=== PATIENT | male | born 1975 | race Caucasian/White ===

== ENCOUNTER → 2020-07-16 12:43 | Outpatient (CLI) | payer OTHER, SELFPAY ==
[2020-07-04 16:40] VITALS: BMI 35.6
--- NOTE | 2020-07-16 12:45 | MRI_ITS ---
STUDY: MRI LEFT SHOULDER REASON FOR EXAM: Male, 45 years old. left shoulder strain -- injured 3 weeks ago, pain entire shoulder, limited rom TECHNIQUE: Standardized fat and water weighted pulse sequences were obtained in all 3 orthogonal planes. COMPARISON: Left shoulder x-ray dated June 25, 2020 FINDINGS: There is high-grade partial tearing of the supraspinatus tendon at the greater tuberosity insertion site, with preservation of the bursal surface fibers. Normal infraspinatus tendon. Normal subscapularis tendon. Normal teres minor tendon. Normal supraspinatus muscle. Normal infraspinatus muscle. Normal subscapularis muscle. Normal teres minor muscle. Normal glenohumeral articulation. Normal humeral head and visualized proximal humerus. Normal biceps labral complex. Normal intracapsular long biceps tendon. Normal labrum. Normal capsulo- ligamentous complex. Normal rotator interval. Normal acromioclavicular articulation. There is a Type II morphology (curved), with a neutral orientation. There is no subacromial-subdeltoid bursal fluid. Normal visualized coracohumeral and coracoacromial ligaments. Normal quadrilateral space. Normal axillary space. Normal deltoid muscle. Normal trapezius muscle. MRI/Upper Ext Joint Only(Routine) IMPRESSION: 1. High-grade partial tearing of the supraspinatus tendon. Electronically Signed: Lance Pineda MD at 20:08 EST , Service support ,
== END ==
PROVIDERS: Referring Provider Physician Assistant Surgical; Visit Provider Physician Assistant Surgical
DX: S46.912A Strain of unspecified muscle, fascia and tendon at shoulder and upper arm level, left arm, initial encounter (principal)
CPT/HCPCS: 73221

== ENCOUNTER 2020-08-27 08:08 | Day surgery (SDC) | payer OTHER, SELFPAY ==
[2020-07-31 09:19] VITALS: BMI 34.1
[2020-08-27] VITALS (12 sets, daily range): BP systolic 132–148; BP diastolic 65–89; PULSE 68–105; RESP 16–18; TEMP 36.3–36.9; O2SAT 91–100; BMI 35.1
[2020-08-27] MEDS: Lactated Ringers 1,000 ML 100 ML IV (08:25)
--- NOTE | 2020-08-27 09:20 | HP_ITS ---
I have re-examined the patient. There are no clinical changes since date of exam. Intake Intake Visit Reasons: sign consent Chief Complaint: Lt shoulder injury Allergies No Known Allergies Allergy (Verified 07/31/20 09:20) PFSH Surgical History (Updated 07/31/20 @ 09:21 by Ayleen Whiting) H/O tooth extraction (Acute) Family History (Updated 07/31/20 @ 09:22 by Ayleen Whiting) Grandfather Diabetes Grandmother Lung cancer Social History (Updated 08/15/20 @ 10:[address] Nena Xiao, ) household members: spouse, children housing: house current occupational status: employed Smoking Status: Never smoker alcohol intake: never what type of physical activity do you participate in: none do you feel safe at home: Yes HPI sign consent: Surgical H&P: Yes Details: Parts of this documentation were recorded by a scribe, this documentation accurately reflects the service provided and the decisions made by me, Dr. Nena Xiao, 08/14/20 [id number]. CATALINA FELTON is a 45 year old M here today for F/U on left shoulder to sign surgery consent for left shoulder scope for RTC tear. Patient continues to have shoulder pain. He has been working without use of the left arm and states he has been doing ok. Denies numbness, tingling or other associated symptoms. ROS Const Reports weakness Musc Reports system reviewed and no additional complaints, except as docu, Reports joint pain, Reports numbness, Reports stiffness, Denies tingling Neuro Yes system reviewed and no additional complaints, except as docu, Yes numbness, No tingling, Yes weakness Ortho Exam Left Shoulder Date of injury: 06/24/20 Skin/Wound: Yes CDI, No ecchymosis, No erythema, No swelling Testing: Yes Hawkin's, Yes Neer's, Yes Speed's, Yes TTP Biceps, Yes AROM-Forward Elevation 0-180 (full), Yes Fisher, Yes lift off Internal Rotation: Hip SHOULDER: 4/5 RTC, neuro intact, negative hoffmans Assessment & Plan Problems 1. Strain of left shoulder, initial encounter S46.396K 2. Unspecified rotator cuff tear or rupture of left shoulder, not specified as traumatic M75.102 Plan Patient is aware of his injury and the cause of his pain. He has been approved through [employer] for the surgery and is here to sign surgery consent. Reviewed the pre-operative plans with the patient. Risks and benefits of the procedure were fully explained, including but not limited to infection, neurovascular injury, continued pain, arthritis, stiffness, need for further surgery, re-injury, DVT, PE, general risks of anesthesia, and loss of limb or life. The patient understands all the risks and does wish to proceed with written consent for left shoulder arthroscopy RTC repair, subacromial decompression, acromioplasty and repair as indicated. We can also request an ice machine through [employer]. He can take Tylenol PM to help him sleep at night and then after surgery he will get ambien and pain medication. Follow up post op or sooner if pain, swelling, numbness or associated symptoms, or concerns develop. All questions answered. Patient in agreement of plan. Coding Level of Care Code Off vis,est,level 4 Diagnoses Strain of left shoulder, initial encounter S46.912A ??Encounter type: initial encounter Unspecified rotator cuff tear or rupture of left shoulder, not specified as traumatic M75.102 COVID (Procedure Consent) Procedure Criteria Procedure Criteria: Yes Elective The surgeon/proceduralist and patient have discussed in detail the risk of exposure to and/or potential harm posed by the COVID-19 virus with having a surgery/procedure at this time versus the risk of? delaying the surgery/procedure. It is not possible to know either the risk of delaying the surgery or procedure or chance of getting an infection with perfect accuracy, but a joint decision was made between the patient and the surgeon/proceduralist ?to proceed at this time with the scheduled surgery/procedure as indicated on the consent form.
--- NOTE | 2020-08-27 09:40 | TESH_PTH ---
PATIENT: CATALINA FELTON LOC: [facility] [place] U#:[id number] AGE/SX: 45/M ROOM: RE08/27/[address]: Dr. Nena Xiao, : 1975 BED: DIS: 08/27/2020 SPEC #: [id number] RECD: 08/27/20 13:40 STATUS: MICHAEL ROLDAN #: [id number] LYRIC: 08/27/20 09:[address]: Nena Xiao DEPT: SURGICAL PATHOLOGY RECD BY: Radha Guan ENTERED: 08/28/20 07:50 SP TYPE: TENDON OT DR: No Primary Care Phys Tissues: Tendon and tendon sheath, NOS Procedures: Surgery Specimen Level III HEADER OPERATION: Arthroscopy, shoulder, rotator cuff debridement, subacromial PRE-OP DIAGNOSIS: Strain of left shoulder, rotator cuff tear TISSUE SUBMITTED: Bicep tendon MICROSCOPIC DIAGNOSIS Bicep tendon: A piece of dense fibroconnective tissue with reactive changes, clinically rotator cuff tear. MIKEY:natali 08/29/2020 MICROSCOPIC DESCRIPTION Slides are reviewed. GROSS DESCRIPTION Received in fixative is one container labeled with the patient's name and designated bicep tendon. The specimen consists of a piece of tendinous tissue measuring 4 x 0.4 x 0.1 cm. The specimen is sectioned and submitted entirely in one cassette. / MIKEY:natali 08/28/2020 TC:5 CPT: 22481
[2020-08-27] MEDS: Cefazolin 2 GM in 0.9% Normal Saline 100 ML IV (11:16)
[2020-08-27] MEDS: Epinephrine (1 mg/ml) 1 MG/ML VIAL (12:37)
[2020-08-27] MEDS: Mupirocin Ointment 22gm Tube 1 APPLIC (12:38)
--- NOTE | 2020-08-27 12:48 | PCM.DC.ORTHO ---
Discharge Diet: No Restrictions - May get incision wet after 4 days, remove dressing apply Band-Aids at that time, call with increased pain numbness tingling or further issues arise, follow-up in 2 weeks, arm in sling may use wrist and hand as tolerated, may move shoulder pendulums postop as tolerated Discharge Activity: May Not Drive May shower in (days): 1 Ice area for (Minutes): 20 - Every hour while awake. Weight Bearing Status: Weight bearing as tolerated Keep extremity elevated above heart level: Operative Extremity Call your doctor if your incision/area has: Continuous Slow Oozing, Sudden Increased Bleeding, Increased Pain/ Swelling, Increased Redness, Foul Smelling Discharge Call your doctor if you observe: Fever of 101 or Higher, Coldness, Increased Pain, Numbness or Tingling, Change in Color, Calf discomfort Allergies/Adverse Reactions: Allergies No Known Allergies Allergy (Verified 08/27/20 08:52) Medications to take at Discharge multivitamin 1 tab PO DAILY 07/31/20 Oxycodone HCl/Acetaminophen [Percocet 5/325] 1 - 2 tablet PO Q6H PRN PRN 5 Days #28 tablet 08/27/20 Zolpidem Tartrate [Ambien (Generic)] 5 mg PO QHS PRN PRN #14 tablet 08/27/20 The following prescriptions were given: Zolpidem Tartrate [Ambien (Generic)] 5 mg PO QHS PRN PRN #14 tablet PRN Reason: Insomnia Transmission Status: Sent to [facility] Oxycodone HCl/Acetaminophen [Percocet 5/325] 1 - 2 tablet PO Q6H PRN PRN 5 Days #28 tablet PRN Reason: Pain Transmission Status: Sent to [facility] Primary Care Physician: Care Physician,No Primary [Primary Care Provider] - Test Results: Test results from this visit will be discussed in further detail at your follow-up appointment, if applicable. Please Follow Up With: Nena Xiao, DO - [phone]
--- NOTE | 2020-08-27 12:49 | PCM.OPRPT ---
Report of Operation Date of Procedure: 08/27/20 Pre-Operative Diagnosis: left shoulder rotator cuff tear, impingment syndrome Post-Operative Diagnosis: same, slap tear/biceps tendinosis Surgery/Procedure Performed:: sals, rotator cuff debridement, subacromial decompression/acromioplasty, open subpec biceps tenodesis instrument maker: Lucas Melendez Type of Anesthesia:: General/Regional Anesthesiologist: Angel Gomez Specimen's removed: biceps tendon Estimated Blood Loss (mL): min Fluids Replaced: 1100cc lr Description of Procedure: Preop note Patient is a 45-year-old male who injured himself at work. Patient anterior with anterior shoulder shoulder pain and difficulty and positive impingement syndrome and lifting head over arm overhead as well as positive speeds and positive yergasons consistent with biceps tendinosis. Patient failed conservative treatment elect proceed with left shoulder arthroscopy repair as indicated. Risk including but not the risk benefits and alternatives surgery were discussed with patient risk include but not limited to blood loss, blood clot, infection, neurovascular G, failure procedure, loss of life and loss of limb. We had discussed with the patient preoperatively as well as although he has pain is mostly biceps it appears that there is fluid around his biceps we will evaluate the intra-articular knee and proceed with any kind of repair that is indicated for his pain is problem. Patient was aware proceed with left shoulder arthroscopy repair as indicated. We discussed the current risk associated COVID-19. While it is understood that there is a community spread of COVID 19 the risk of shauna COVID-19 while at [facility] is very low, however, the risk cannot be completely mitigated because of the community spread of the disease. We discussed in detail the risk of exposure to and or potential harm posed by the COVID-19 virus with having a surgery/procedure at this time versus the risk of delaying the surgery/procedure. Is not possible to know either the risk of delaying the surgery procedure or chance of getting an infection with perfect accuracy, but a joint decision was made to proceed at this time with a schedule surgery/procedure as indicated on the consent form. Patient was notified that we will need to comply with any screening or testing [facility] wishes to perform or that surgery may be delayed for any positive results. Operative note Patient seen and examined preop holding area. Left arm was marked. Patient received a preop interscalene regional block. Patient brought to the operative operating room and placed supine on the operating table. Sign, anesthesia, antibiotics were administered. Patient was placed in beachchair positioning mcfp through beachchair positioning his blood pressure was checked and was stable throughout. All bony promises well-padded SCDs placed on his bilateral lower extremity. The left arm was then prepped and draped in usual sterile technique. We marked out our bony landmarks for portal placement. Timeout was performed. We then used a needle to create a posterior portal and we got insufflate the joint with 60 cc of normal saline had good return. Then use 11 blade to create a posterior posterior portal. Began our diagnostic arthroscopy. The glenohumeral joint was intact. Then created an anterior portal under direct visualization. His subscap was intact his rotator cuff was intact his biceps labral junction was completely torn off and when bringing the biceps into the joint there was obvious redness and streaking throughout the entire length of the of the biceps tendon. We then inserted a basket and truncated the biceps at the biceps labral junction. We then inserted a shaver to debride back any unstable labral remnants. We then gently debride the leading edge of the rotator cuff as the leading edge supraspinatus tear however did not involve the footprint. We then moved to the subacromial space. Created a lateral portal under direct visualization. Resected the hyperemic and thickened bursa especially the posterior veil. We are able then to visualize the rotator cuff from the bursal side which is also intact and stable to probing. We then coplaned gently debrided back to the lateral anterior edge of the acromion. And then irrigated the subacromial space with copious amounts of sterile saline. We then moved her open biceps subpec tenodesis. We reprepped the area. We waited the allotted time made about a 2 and half centimeter incision just distal to the pec insertion. We used a 15 blade to cut through skin dissect down with Metzenbaums to the level of the biceps tendon biceps tendon then brought out of the incision truncated to the appropriate length and the biceps tendon sent to pathology for further evaluation. We then cleared off the bone for insertion site of our pec button. We oversewed the remaining edge of the biceps tendon and then placed the ends of the suture limbs through the pec button. We then drilled unicortical he placed the pec button and then through into the humeral shaft and the brought the tendon down to bone. We then oversewed with a free needle through the with utilizing the periosteum for further fixation strength. We then irrigated the incision with copious muscle sterile saline. The incision closed with 4-0 Vicryl and a running 5-0 Monocryl. The portals were closed with interrupted nylon stitches. Sterile dressings were applied. Patient tolerated procedure well no complication transferred recovery room stable condition. Postoperative note Sent prescriptions to drug [place] We will give pictures to patient's in 2 weeks Sling at all times except while doing pendulums for shoulder and may use shoulder to range overhead however not to actively flex elbow Call with increased pain numbness tingling further issues arise This note was generated with [employer] dictation software. It may contain incorrect words, spelling, and punctuation that were not noted in checking the note before signing.
[2020-08-27] MEDS: HYDROcodone Bitartrate/Apap 5/325 Tablet PO (15:18)
== END 2020-08-27 16:21 | disposition home or self-care (01) ==
LOC: SDC 08:08 → AC 08:09
PROVIDERS: Referring Provider Orthopaedic Surgery; Visit Provider Orthopaedic Surgery
PROC: (CPT 29827; principal; 2020-08-27 09:20)
DX: S46.012A Strain of muscle(s) and tendon(s) of the rotator cuff of left shoulder, initial encounter (principal); M75.42 Impingement syndrome of left shoulder; M75.22 Bicipital tendinitis, left shoulder; Z20.822 Contact with and (suspected) exposure to COVID-19; X58.XXXA Exposure to other specified factors, initial encounter; Y93.89 Activity, other specified; Y92.89 Other specified places as the place of occurrence of the external cause; Y99.0 Civilian activity done for income or pay
CPT/HCPCS: 01630; 29826; 29827; 29828; 87426; 88304; C9803; J7120; J2405

== ENCOUNTER 2021-01-08 11:30 | Outpatient (RCR) | payer OTHER, SELFPAY ==
[2020-09-12 09:22] VITALS: BMI 34.1
--- NOTE | 2020-09-30 10:59 | HP.PTEVAL ---
Patient's Visit Information CATALINA FELTON is a 45 year old M referred to Physical Therapy by Dr. Nena Xiao, with a diagnosis of Left Biceps Tenodesis. Date of Evaluation: 09/30/20 Physical Therapist: Ketty Alcaraz DPT - Visit Plan Frequency: 3x /Week Duration: 4 Weeks Plan: 08/27/2020 Biceps Tenodesis- see cabinet for protocol. HEP Given IE: reviwed precautions, pendulums and gave table walkaways in flexion and scaption- educated to be gentle - Subjective Patient reports that he was moving milk and it snagged on the trailer June 24- called his boss finished out the workday. [facility]. Strain and had restrictions- then had an MRI- and had surgery 08/27/[address] Xiao- no RTC repair but cleaned out bursitis and performed a tenodesis. Is wearing the sling at home in the evening but he wears it when he goes out. Left hand dominate. Patient reports that its sore on the top of the shoulder Worst: 8/10 Agg: moving it around worse in the mornings. Best: 0/10 Eases: keeping it close to his body. Sleep: disturbed hard to get comfortable- sleeping in a bed- 2.5 hours at a time. He is currently off work- 90 day light duty so they will have him go back. N/T in the hand- but goes quick when he gets moving. Describes the pain in the shoulder as constant is more dull and achy when he moves it wrong the pain can be sharp. Prior to injury-fully I prior to surgery. Has kids so they keep him busy but has really slowed down during the injury. PMHx/Meds: no changes since saw . - Objective Posture: FH, RS, increased guarding of the left UE- does have on sling without pillow. Gait: decreased arm swing and trunk rotation. Palpatoin: tender along upper trap into the biciptal groove and to the AC Joint. Observation: incision healing well no s/s of infection. ROM: Wrist/hand: WNL, Elbow: PROM: 0-120 degrees, Shoulder: AROM: flexion: 50 degrees, abd: 60 degrees, PROM: significant guarding: flexion: 90 degrees, abd: 90 degrees, IR: to belly, ER: 30 degrees all with significant discomfort. Cervical spine: WNL. Strength: not tested due to restrictions. Strainer Tender: 140 on right 40 on left - Goals Goal 1:: Patient will be I with HEP and progression Goal Time Frame: 4-6 Weeks Goal 2:: Patient will maintain proper posture t/o tx session to demo increase scap s/s Goal Time Frame: 4-6 Weeks Goal 3:: Patient will demo full AROM as all through protocol Goal Time Frame: 4-6 Weeks Goal 4:: Patient will lift 50# box x10 from floor to waist Goal Time Frame: 4-6 Weeks - Rehabilitation Potential Physical Therapy Diagnosis: Patient presents s/p biceps tenodesis 08/27/2020. He has decreased ROM, scapular s/s, and muscular endurance leading to poor posture and increased pain with ADL's Rehabilitation Potential: Good - Anticipated Interventions Patient/Client Instruction: Educate patient on: Benefits of Fitness Program Therapeutic Exercise to Include: Strength training, Endurance training, Agility training, Body mechanics, Postural training, Flexibilty training, Neuromotor development, Passive ROM, Active ROM, Dynamic Lumbar Stabilization, Scapular Strength/Stabilization For the Purpose of:: To improve muscle performance and motor function Functional Training to Include: ADL Training, Functional work training Manual Therapy Techniques to Include: Mobilization, Passive ROM, Soft tissue mobilization For the Purpose of:: To increase ROM TENS: Yes Cryotherapy (ice pack, ice massage): Yes Thermo therapy (hot pack): Yes Ultrasound (thermal/non thermal): No For the Purpose of:: To decrease pain Thank you for the opportunity to evaluate your patient. For Medicare and Medicare HMO plans, please review the plan of care and approve it. It will need to be FAXED BACK to us at [phone] for Medicare purposes. For Medicare only, by signing this I certify the plan of care. Please let me know if there are questions or concerns regarding this plan of care. Physician Signature: Date:
--- NOTE | 2020-10-30 13:08 | HP.PTREVAL ---
Dr. Nena Xiao, DO, It has been my pleasure to treat CATALINA FELTON over the last 9 visits for Left Biceps Tenodesis. Please see the progress note below for an update on the physical therapy plan of care! Subjective: He reports that its moving better but he still has a lot of pain in the ER motion and radiates pain into the deltoid. He stil can't wash his back behind him due to lack of ROM. Goes back to [place] in a few weeks. He is not back to work yet but when he does he will only have 90 days for light duty. 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 Worst: 02/03 Agg: moving it- cross body, behind his back and then out to the side. Does wake him up at night. Objective/Function: Posture: FH, RS- still guards the left UE. Gait: mild decrease in left arm swing and trunk rotation. Palpatoin: tender along upper trap, medial border of the scapula and into the AC joint and deltoid. ROM: AROM: Flexion: 120 degrees Abd: 110 degrees IR: belt line, ER: 40 degrees Elbow: WFL. Strength: Isometric: Shoulder: 4/5 with pain, Elbow: 4+/5, Head Refrigerating Engineer Strength: 60lbs of forces Plan Plan: 10/30/2020 Requires new C9 to continue therapy and progress through protocol. 08/27/2020 Biceps Tenodesis- see cabinet for protocol Goals Goal 1:: Patient will be I with HEP and progression Goal Time Frame: 4-6 Weeks Goal Progress: Progressing Goal 2:: Patient will maintain proper posture t/o tx session to demo increase scap s/s Goal Time Frame: 4-6 Weeks Goal Progress: Progressing Goal 3:: Patient will demo full AROM as all through protocol Goal Time Frame: 4-6 Weeks Goal Progress: Progressing Goal 4:: Patient will lift 50# box x10 from floor to waist Goal Time Frame: 4-6 Weeks Goal Progress: Not Progressing Anticipated Interventions Patient/Client Instruction: Educate patient on: Benefits of Fitness Program Therapeutic Exercise to Include: Strength training, Endurance training, Agility training, Body mechanics, Postural training, Flexibilty training, Neuromotor development, Passive ROM, Active ROM, Dynamic Lumbar Stabilization, Scapular Strength/Stabilization For the Purpose of:: To improve muscle performance and motor function Functional Training to Include: ADL Training, Functional work training Manual Therapy Techniques to Include: Mobilization, Passive ROM, Soft tissue mobilization For the Purpose of:: To increase ROM TENS: Yes Cryotherapy (ice pack, ice massage): Yes Thermo therapy (hot pack): Yes Ultrasound (thermal/non thermal): No For the Purpose of:: To decrease pain Please do not hesitate to contact me at [phone] by phone or if you have questions or concerns regarding this new plan of care! Sincerely, LOS ShahT
--- NOTE | 2020-12-16 13:51 | HP.PTREVAL ---
Dr. Nena Xiao, DO, It has been my pleasure to treat CATALINA FELTON over the last 12 visits for Left Biceps Tenodesis. Please see the progress note below for an update on the physical therapy plan of care! Subjective: Trying to get a dynasplint. Getting therapy extended. Still has pain top of shoulder and doctor may want to do another surgery but wants ROM back first. Long run to therapy 100 mile round trip from [place]. Doing exercises at home inclduing syd and wall slides and table slides. Has not been doing any strengthening. Pain is not present at rest. L arm across body can be painful and reaching behind back is painful. Can reach up decently. Hurts and sore after I stretch. Objective/Function: L shoulder AROM flexion 125, ext rot25, ir PSIS all self limited by pain. PROM L flexion 128 firm, ext rotation 35 frim, IR 45 at 80 abd firm. Pt hesitant to push into pain and over concerned with pain in shoulder adn some popping which limit his stretches. Not really progressing toward goals but has been noncompliant with attendance. still appropriate and questionable prognosis Plan Plan: 3x/week for 3 weeks for aggressive ROM L shoulder and progression of elevated strength to tolerance, may use modalities to compliment ROM and manual mobs. Goals Goal 1:: Patient will be I with HEP and progression Goal Time Frame: 4-6 Weeks Goal Progress: Progressing Goal 2:: Patient will maintain proper posture t/o tx session to demo increase scap s/s Goal Time Frame: 4-6 Weeks Goal Progress: Progressing Goal 3:: Patient will demo full AROM as all through protocol Goal Time Frame: 4-6 Weeks Goal Progress: Progressing Goal 4:: Patient will lift 50# box x10 from floor to waist Goal Time Frame: 4-6 Weeks Goal Progress: Not Progressing Anticipated Interventions Patient/Client Instruction: Educate patient on: Benefits of Fitness Program Therapeutic Exercise to Include: Strength training, Endurance training, Agility training, Body mechanics, Postural training, Flexibilty training, Neuromotor development, Passive ROM, Active ROM, Dynamic Lumbar Stabilization, Scapular Strength/Stabilization For the Purpose of:: To improve muscle performance and motor function Functional Training to Include: ADL Training, Functional work training Manual Therapy Techniques to Include: Mobilization, Passive ROM, Soft tissue mobilization For the Purpose of:: To increase ROM TENS: Yes Cryotherapy (ice pack, ice massage): Yes Thermo therapy (hot pack): Yes Ultrasound (thermal/non thermal): No For the Purpose of:: To decrease pain Please do not hesitate to contact me at [phone] by phone or if you have questions or concerns regarding this new plan of care! Sincerely, Les Quiñones, DPT, OCS, CSCS
--- NOTE | 2021-01-08 11:51 | HP.PTREVAL_ITS ---
Dr. Nena Xiao, DO, It has been my pleasure to treat CATALINA FELTON over the last 18 visits for Left Biceps Tenodesis. Please see the progress note below for an update on the physical therapy plan of care! Subjective: Patient reports that he can go over head straight fowards- since surgery he feels like the abduction is an issue. He also has a lot of pain. Worst: 6/10 pain is located in the anterior shoulder and in the tricep area- more sharp and shooting. Eases: ice machine Best: 0/10. Goes back to MD in the next week or two. Date extension for the C9 is up today. Feels that he is making progress with more ROM with stretching. Does not have a return to work date- his company is still working with him- [employer]. Objective/Function: Posture: FH, RS- can correct but does not maintain. Gait: good arm swing and trunk rotation. Palpation: tender along upper trap and to the AC joint. ROM: Shoulder Flexion: 130 degrees Abd: 80 degrees with compensation IR: pocket, ER: 40 degree, Elbow/Wrist/Hand: WNL. Strength: Director [employer]: Left: 90 Right: 130, Wrist: 4/5, Shoulder: Isometric at 90 degrees: flexion: 4 /5, abd: 4/5, Extn: 4+/5, Abd: 4/5, IR/ER: 4-/5. In available range: 4-/5 pain. Plan Plan: 01/08/2021: Waiting on new C9. 3x/week for 3 weeks for aggressive ROM L shoulder and progression of elevated strength to tolerance, may use modalities to compliment ROM and manual mobs. Goals Goal 1:: Patient will be I with HEP and progression Goal Time Frame: 4-6 Weeks Goal Progress: Progressing Goal 2:: Patient will maintain proper posture t/o tx session to demo increase scap s/s Goal Time Frame: 4-6 Weeks Goal Progress: Progressing Goal 3:: Patient will demo full AROM as all through protocol Goal Time Frame: 4-6 Weeks Goal Progress: Progressing Goal 4:: Patient will lift 50# box x10 from floor to waist Goal Time Frame: 4-6 Weeks Goal Progress: Not Progressing Anticipated Interventions Patient/Client Instruction: Educate patient on: Benefits of Fitness Program Therapeutic Exercise to Include: Strength training, Endurance training, Agility training, Body mechanics, Postural training, Flexibilty training, Neuromotor development, Passive ROM, Active ROM, Dynamic Lumbar Stabilization, Scapular Strength/Stabilization For the Purpose of:: To improve muscle performance and motor function Functional Training to Include: ADL Training, Functional work training Manual Therapy Techniques to Include: Mobilization, Passive ROM, Soft tissue mobilization For the Purpose of:: To increase ROM TENS: Yes Cryotherapy (ice pack, ice massage): Yes Thermo therapy (hot pack): Yes Ultrasound (thermal/non thermal): No For the Purpose of:: To decrease pain Please do not hesitate to contact me at [phone] by phone or if you have questions or concerns regarding this new plan of care! Sincerely, LOS ShahT
== END 2021-01-08 19:00 | disposition home or self-care (01) ==
LOC: PT 11:30
PROVIDERS: Referring Provider Orthopaedic Surgery; Visit Provider Orthopaedic Surgery
DX: S46.122D Laceration of muscle, fascia and tendon of long head of biceps, left arm, subsequent encounter (principal); X58.XXXD Exposure to other specified factors, subsequent encounter
CPT/HCPCS: 97110; 97140; 97161; 97164; 97530

== ENCOUNTER 2021-08-27 15:27 | Outpatient (CLI) | payer OTHER, SELFPAY ==
--- NOTE | 2021-08-27 15:37 | MRI_ITS ---
EXAM: MR RIGHT UPPER EXTREMITY WITHOUT INTRAVENOUS CONTRAST, SHOULDER CLINICAL INDICATION: R shoulder strain Pain extending down arm. Pain x 3-4 weeks TECHNIQUE: Multiplanar and multisequence MR images of the right shoulder without intravenous contrast. This report was created using [employer] report generation technology. COMPARISON: None. FINDINGS: TENDONS: SUPRASPINATUS: Partial incomplete tear of the supraspinatus tendon. INFRASPINATUS: Unremarkable. Intact. SUBSCAPULARIS: Unremarkable. Intact. TERES MINOR: Unremarkable. Intact. BICEPS BRACHII, LONG HEAD: Unremarkable. The extra-articular biceps tendon is in the bicipital groove. The intra-articular biceps tendon is normal. LIGAMENTS: GLENOHUMERAL: Unremarkable. Intact. MUSCLES: Unremarkable. No rotator cuff muscle atrophy. FLUID: There is minimal fluid distention of the subacromial bursa, consistent with mild subacromial-subdeltoid bursitis. No joint effusion. CARTILAGE: Unremarkable. Articular cartilage intact. GLENOID LABRUM: Unremarkable. Intact, limited evaluation on non-arthrographic exam. BONES/JOINTS: There is degenerative arthrosis of the acromioclavicular joint without inferior osseous spur formation. No fracture. No abnormal bone marrow signal. OTHER SOFT TISSUES: Unremarkable. No rotator interval edema. MRI/Upper Ext Joint Only(Routine) IMPRESSION: 1. There is minimal fluid distention of the subacromial bursa, consistent with mild subacromial-subdeltoid bursitis. 2. Partial incomplete tear of the supraspinatus tendon. Electronically Signed: Enrique Nogueira MD at 17:39 EST ,
== END 2021-08-27 23:59 | disposition home or self-care (01) ==
LOC: MRI 15:28
PROVIDERS: Visit Provider Physician Assistant Surgical
DX: S46.911A Strain of unspecified muscle, fascia and tendon at shoulder and upper arm level, right arm, initial encounter (principal)
CPT/HCPCS: 73221

== ENCOUNTER 2021-10-05 10:06 | Outpatient (CLI) | payer OTHER, SELFPAY ==
--- NOTE | 2021-10-05 11:26 | NEURO ---
NCS and/or EMG Patient Report Ordering Doctor: Lucas Melendez DATE OF SERVICE: 10/05/21 Indication: Numbness in the first three digits of the right hand. History of recent rotator cuff injury as well as lateral elbow pain. Evaluate for entrapment neuropathy. Findings: Nerve conduction studies were performed in the right upper extremity. The right median motor study recording the abductor pollicis brevis showed a normal amplitude, prolonged distal latency and slowed conduction velocity. The right ulnar motor study recording the abductor digiti minimi showed a normal amplitude, normal distal latency and normal conduction velocity. No conduction block or focal slowing was present across the elbow. The right median sensory response recording digit two showed a borderline amplitude, prolonged latency and slowed conduction velocity. The right ulnar sensory response recording digit five showed a normal amplitude, latency and conduction velocity. The right radial sensory response recording over the extensor snuff box showed a normal amplitude, latency and conduction velocity. Right median-ulnar lumbrical / interosseous motor latencies showed a prolonged median latency compared to the ulnar. Needle EMG of the right upper extremity muscles was performed. No denervation was seen in any muscle. Motor units in the right abductor pollicis brevis were slightly large amplitude and long duration with normal recruitment. All other motor unit morphology, activation and recruitment patterns were normal. Impression: This is an abnormal study. There is electrophysiologic evidence of a mild median neuropathy across the right wrist. These findings are compatible with the clinical diagnosis of carpal tunnel syndrome. Jeremie Bui D.O. Multi Select Codes Neurology Neurology Interp Codes: 52121-63 Musc test done w/n test comp (interp) and 78473-62 Nr cndj test 7-8 studies (interp)
== END 2021-10-05 23:59 | disposition home or self-care (01) ==
LOC: PSN 10:08
PROVIDERS: Referring Provider Physician Assistant; Visit Provider Physician Assistant
DX: S46.911A Strain of unspecified muscle, fascia and tendon at shoulder and upper arm level, right arm, initial encounter (principal); R20.0 Anesthesia of skin
CPT/HCPCS: 95886; 95910

== ENCOUNTER 2021-10-13 10:40 | Outpatient (CLI) | payer OTHER, SELFPAY ==
[2021-10-13 12:20] LABS: Absolute Lymphocyte Count 1.86 X10^3/uL (0.83-4.51); Absolute Neutrophil Count 3.9 X10^3/uL (2.0-7.7); Basophil# 0.04 X10^3/uL; Basophil% 0.6 % (0-1); Eosinophil# 0.14 X10^3/uL; Eosinophils% 2.1 % (0-5); Hematocrit 47.4 % (40-54); Hemoglobin 15.6 g/dL (13.0-16.5); Lymphocyte # 1.86 X10^3/ul (0.83-4.51); Lymphocyte % 27.6 % (19-41); Mean Corp Hgb Conc 32.9 g/dL (32-36); Mean Corpuscular Hgb 30.5 pg (27.0-32.0); Mean Corpuscular Volume 92.6 fL (80-94); Mean Platelet Vol. 10.9 fl (6.2-12.0); Monocyte# 0.78 X10^3/uL; Monocyte% 11.6 % (0-10); NRBC Flagged by Analyzer 0 % (0-5); Neutrophil % 57.7 % (47-70); Platelet Count 184 K/mm3 (150-450); RBC Distribution Width CV 12.5 % (11.6-14.6); RBC Distribution Width SD 43.2 fl (35.1-43.9); Red Blood Count 5.12 M/mm3 (4.6-6.2); White Blood Count 6.8 K/mm3 (4.4-11.0)
[2021-10-13 12:33] LABS: ALB/GLOB Ratio 0.9 RATIO (0.9-2.4); AST(SGOT) 23 U/L (15-37); Alanine Aminotransfer ALT/SGPT 43 U/L (16-61); Albumin, Serum 3.5 g/dL (3.2-5.0); Alkaline Phosphatase 89 U/L (45-117); Anion Gap 5 (5-15); BUN 11 mg/dL (7-18); BUN/Creat Ratio 13.4 RATIO (10-20); Calcium,Total 8.4 mg/dL (8.5-10.1); Chloride 107 mmol/L (98-107); Cholesterol 169 mg/dL (200); Creatinine, Serum 0.82 mg/dL (0.70-1.30); EST Glomerular Filtration Rate 108 mL/min (>60); Est Glom Filt Rate - Afr Amer 130 mL/min (>60); Globulin 4.1 g/dL (2.2-4.2); Glucose 114 mg/dL (74-106); High Density Lipoprotein 52 mg/dL; Potassium 4.1 mmol/L (3.5-5.1); Protein, Total 7.6 g/dL (6.4-8.2); Sodium Level 140 mmol/L (136-145); Thyroid Stim Hormone (TSH) 2.09 uIU/mL (0.358-3.74); Triglycerides 54 mg/dL; Very Low Density Lipoprotein 11 mg/dL (5-40)
== END 2021-10-13 23:59 | disposition home or self-care (01) ==
LOC: BIMLAB 10:41
PROVIDERS: PCP Internal Medicine; Referring Provider Physician Assistant; Visit Provider Physician Assistant
DX: R63.1 Polydipsia (principal)
CPT/HCPCS: 36415; 80053; 80061; 84443; 85025

== ENCOUNTER 2021-10-20 07:00 | Outpatient (RCR) | payer OTHER, SELFPAY ==
--- NOTE | 2021-09-01 09:51 | HP.PTEVAL_ITS ---
Patient's Visit Information CATALINA FELTON is a 46 year old M referred to Physical Therapy by MIGUEL ANGEL Caicedo with a diagnosis of STRAIN OF UNSPECIFIED FASCIA AND TENDON SHOULDER, STRAIN OF HIP ADDUCTOR. Date of Evaluation: 09/01/21 Physical Therapist: Cruzito Deleon PT, Cert MDT, OCS - Visit Plan Frequency: 3x /Week Duration: 4 Weeks Plan: PT INETERVETIONS GRADED RTC/SCAPULAR STRENGTHENING ,POSTURAL EX'S ,ROM/FLEXABLITY HIP ,STRENGTHNEING HIP ,ACTIVITY MODIFICATIONS AND MODALTIES - Subjective This 46 y/o male presents to physical therapy with right shoulder pain and and right groin region. Patient slipped to side with. case of milk when lifting causing right pain and groin region. DOI 08/03/21 ,[facility] ~ 1[facility] . Initially ,restrictions at work 10 # lifting with normal hours. Pain was getting better then did MRI showed partial supraspinatus. DR provided MEDS .C/O paresthesia in hand. Aggravating factors lifting with arm OH ,reaching behind back and reaching. Alleviating factors rest. Pain affects sleeping. Pain in r ight shoulder lateral AC . Pain in hip groin right. Aggravating factors constant pain squatting ,kneeling and climbing and moving quickly. Alleviating factors rest. Patient pain in right shoulder pain impairs ability to RTW full and housework tasks . Patient symptoms affects affects QOL and function. SOCIAL: . VOCATION: [employer]. - Pain Right Shoulder Pain Intensity (Out of 10): 6 Pain Intensity Range: 10 Right Hip Pain Intensity (Out of 10): 6 Comment: groin - Objective POSTURE: mild forward posture. GAIT: reciprocal pattern. PALPATION: tender AC, right groin ,lower abdominal. NEURO denies paresthesia/tingling. AROM SHOULDER: flexion 145 degrees ,abduction 150 degrees, ER 90 ,IR l5. AROM HIP : flexion 100 degrees, hip abduction 40 degrees ,HIP ER 50 degrees ,IR 40 degrees pain. MMT(peak force) : shoulder infraspinatus 10.7, subscapularis 11.3 ,supraspinatus 8.1 ,lateral deltoid 9.1 ,anterior deltoid -pain all planes. hip flexion 22.5 ,quads 22.9 ,hamstrings 19.2 ,hip abduction 22.1 - Special Tests R Hip Scour: Negative R Hip Quadrant - Intraarticular Pathology: Negative R Hip ASAD - Intraarticular Pathology: Positive R Hip Trendelenberg - Glut Medius: Negative R Hip Rosalie - IT Band: Negative R Hip Resisted Exernal Derotation Test - GT Pain Syndrome: Negative R Shoulder Lift Off Test - Subscapular Tear: Negative R Shoulder Drop Sign - IS Test: Negative R Shoulder Empty Can - SS: Positive R Shoulder Belly Press - SupScap: Negative R Shoulder Neer - Impingement: Positive R Shoulder Valencia Leonardo - Impingement: Positive - Balance/Special Test Scores Quick DASH Score: 43.1800 - Goals Goal 1:: Patient to be I with HEP for shoulder and hip Goal Time Frame: 4-6 Weeks Goal 2:: Patient to demonstrate 50 % improvement with function with right shoulder and hip Goal Time Frame: 4-6 Weeks Goal 3:: Patient increase right shoulder strength RTC and deltoid and hip by 8- 10 peak force to improve function with OH and walking and lifting for right hip Goal Time Frame: 4-6 Weeks Goal 4:: Patient to increase ROM shoulder flexion /abduction 150 degrees to improve function and ADL'S. Goal Time Frame: 4-6 Weeks Goal 5:: Patient to improve quick dash by 5 points or > to improve QOL and function Goal Time Frame: 4-6 Weeks - Rehabilitation Potential Physical Therapy Diagnosis: This patient has right shoulder pain with MRI showing supraspinatus tear with pain ,decrease ROM, strength impairs function with ADLS and job demands along with right groin stain affect lower abdominals affect function with liftimng turning impair job demands thus benefit from skilled PT Rehabilitation Potential: Good - Anticipated Interventions Patient/Client Instruction: Educate patient on: Condition, Plan of Care For the Purpose of:: To decrease pain, To increase ROM, To improve muscle performance and motor function, To improve ability to perform ADL's, To increase tolerance to activity/condition/position, To improve ability of physical actions for home/community/work/leisure, To improve gait and locomotor functions, To improve health of tissue, To decrease soft tissue restriction, To increase flexibility/ROM, To reduce risk of recurrence, To prevent re-injury Therapeutic Exercise to Include: Strength training, Endurance training, Balance training, Postural training, Flexibilty training, Active ROM Comment: HIP,RTC For the Purpose of:: To decrease pain, To increase ROM, To improve muscle performance and motor function, To increase tolerance to activity/condition/position, To improve ability of physical actions for home/community/work/leisure, To improve health of tissue, To decrease soft tissue restriction, To increase flexibility/ROM, To prevent re-injury TENS: Yes IF ES: Yes Cryotherapy (ice pack, ice massage): Yes Thermo therapy (hot pack): Yes Ultrasound (thermal/non thermal): Yes For the Purpose of:: To decrease pain, To increase ROM, To improve nutrient delivery to tissue, To increase oxygenation perfusion, To improve health of tissue, To decrease soft tissue restriction Thank you for the opportunity to evaluate your patient. For Medicare and Medicare HMO plans, please review the plan of care and approve it. It will need to be FAXED BACK to us at [phone] for Medicare purposes. For Medicare only, by signing this I certify the plan of care. Please let me know if there are questions or concerns regarding this plan of care. Physician Signature: Date:
--- NOTE | 2022-03-03 11:44 | HP.PT.NRP ---
CATALINA FELTON was seen in my office for initial evaluation on 09/01/21. The following Plan of Care was established for this patient: Initial Frequency: 3x /Week Initial Duration: 4 Weeks Patient/Client Instruction: Educate patient on: Condition, Plan of Care For the Purpose of:: To decrease pain, To increase ROM, To improve muscle performance and motor function, To improve ability to perform ADL's, To increase tolerance to activity/condition/position, To improve ability of physical actions for home/community/work/leisure, To improve gait and locomotor functions, To improve health of tissue, To decrease soft tissue restriction, To increase flexibility/ROM, To reduce risk of recurrence, To prevent re-injury Therapeutic Exercise to Include: Strength training, Endurance training, Balance training, Postural training, Flexibilty training, Active ROM For the Purpose of:: To decrease pain, To increase ROM, To improve muscle performance and motor function, To increase tolerance to activity/condition/position, To improve ability of physical actions for home/community/work/leisure, To improve health of tissue, To decrease soft tissue restriction, To increase flexibility/ROM, To prevent re-injury TENS: Yes IF ES: Yes Cryotherapy (ice pack, ice massage): Yes Thermo therapy (hot pack): Yes Ultrasound (thermal/non thermal): Yes For the Purpose of:: To decrease pain, To increase ROM, To improve nutrient delivery to tissue, To increase oxygenation perfusion, To improve health of tissue, To decrease soft tissue restriction This patient was last seen in our office . Pertinent comments regarding their Physical therapy will appear below: Patient seen for PT for right shoulder pain and hip add strain for ROM/strength ,function and modalities thus d/c to MD ,progressing with managing symptoms At this point I will be discontinuing this patient from physical therapy. I would be happy to see this patient again in the future if found appropriate by the physician. Thank you! Cruzito Deleon, PT, Cert MDT, OCS Balance/Gait/Functional tests - Balance/Special Test Scores Quick DASH Score: 22.7280
== END 2021-10-20 19:00 | disposition home or self-care (01) ==
LOC: PT 07:00
PROVIDERS: Referring Provider Physician Assistant Surgical; Visit Provider Physician Assistant Surgical
DX: S46.911D Strain of unspecified muscle, fascia and tendon at shoulder and upper arm level, right arm, subsequent encounter (principal); S76.211D Strain of adductor muscle, fascia and tendon of right thigh, subsequent encounter
CPT/HCPCS: 97014; 97110; 97162; G0283

== ENCOUNTER → 2021-12-12 | Outpatient (CLI) | payer OTHER, SELFPAY ==
--- NOTE | 2021-12-12 09:13 | MRI_ITS ---
STUDY: MRI RIGHT ELBOW REASON FOR EXAM: Male, 46 years old. R elbow pain TECHNIQUE: Standardized fat and water weighted pulse sequences were obtained in all 3 orthogonal planes. COMPARISON: None. FINDINGS: Normal radio-capitellum articulation. Normal radial collateral ligamentous complex. Normal common extensor tendon. Normal ulnotrochlear articulation. Normal ulnar collateral ligamentous complex. Normal common flexor tendon. The cubital tunnel is normal, with a normal ulnar nerve. There is tendinosis with a partial tear of the distal biceps tendon, but without a complete rupture. Normal lacertus fibrosis. Normal brachialis musculotendinous insertion. Normal triceps tendon and teno-osseous insertion. Normal olecranon process. The visualized distal humerus, proximal radius, and ulna are normal. The visualized muscles of the distal arm and proximal forearm are normal. The soft tissue structures are unremarkable. MRI/Upper Ext Joint Only(Routine) IMPRESSION: Partial tear of the biceps tendon insertion with hyperintensity and laxity. Electronically Signed: Nahid Ponce MD at 21:49 EDT ,
== END | disposition home or self-care (01) ==
LOC: MRI 08:56
PROVIDERS: PCP Internal Medicine; Referring Provider Physician Assistant; Visit Provider Physician Assistant
DX: M77.8 Other enthesopathies, not elsewhere classified (principal)
CPT/HCPCS: 73221

== ENCOUNTER 2022-02-02 09:30 | Outpatient (RCR) | payer OTHER, SELFPAY ==
--- NOTE | 2021-12-03 07:08 | HP.OTEVAL_ITS ---
Patient's Visit Information CATALINA FELTON is a 46 year old M, referred to Occupational Therapy by MIGUEL ANGEL Bryant, with a diagnosis of R elbow tendonitis. Date of Evaluation: 12/02/21 Occupational Therapist: Jayne Kenyon, OTR/L, CHT - Subjective Pt. was referred for Right elbow tendonitis by Migel Melendez PA-C. Pt. has c/o pain through R dorsal side forearm. Pain started in July, was called a golfer's elbow, then tennis elbow. He reported getting a steroid shot in July in [place] which pt. reporting has helped. Pt. reported he has had R shoulder problems, L shoulder surgery, and R groin pain. Pt. did complete therapy for both shoulders and R LE pain. Pt. is currently not working. Pt. would like to return to work a nd PLOF. - ADLs Miscellaneous: Open doors/Including car door Comments: L hand dominant, had sx last year on L shoulder, has limited ROM. Did light duty with 10# limitation at work, stopped last month, not working currently. 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 and is able to assist. Has 6 kids - Pain Right Hand 3 Pain Intensity Range: 8 - ROM Shoulder: L 125* R 130* Elbow: R 120* Wrist: B WFL ROM Comments: Catalina 10 on B hands. can make composite fist with both hands - Strength Shoulder: R 21.1# L 14.8# Elbow: R 7.6# L 17.6# Senior Automation Engineer: R 50# L 65# Lateral Pinch: R 20#, L 20# Tripod Pinch: R 20# L20# Tip-to-Tip Pinch: R 8# L 12# Strength Comments: ELBOW R 50# bent, straight 30#. ELBOW L 65# bent, straight 65# - Edema Elbow: R 31.5 cm L 33 cm Other: measured below elbow crease. - Sensation Thumb: L 2.83 R 2.83 Index: L 2.83 R 3.22 Middle: L 3.22 R 3.84 Ring: L 3.22 R 2.83 Little: L 2.83 R 2.83 Sensation Comments: has numbness tingling mostly in the morning. Had an EMG nothing remarkable. no deficits related to temperature. educated pt. on visually compensating for decreased sensation in R middle finger - Special Tests Lat Epiconylitis - as named: positive - Quick DASH-Disab of Arm,Shoulder& Hand Quick DASH Score: 54.5450 - Goals Goal:100% adherence to protocol: Yes Comment: [place] [facility] guidelines pp. 158-165 Goal:ROM equal to unaffected hand: Yes Goal:Senior Automation Engineer/Pinch strength at least 75% of unaffected hand: Yes Goal:No pain with affected hand use: Yes Goal:Full use of affected hand in daily activities including: Yes Goal:Improvement in sensation documented by [place]-Cassie: Yes - Rehabilitation General Assessment: Pt. was referred to OT services for Right elbow tendonitis by Migel Melendez PA-C. Pt. has been experiencing the R forearm pain since July. Educated pt. on gentle massage, gentle stretching, counterforce brace, wrist cockup splint, ergonomic body positioning with daily tasks (provided handouts of all). Because of pain he has decreased indep with IADL tasks and work, he reported he has learned to compensate for basic ADL tasks. He would benefit from skilled OT services 2x a week for 6 weeks to improve R forearm ROM and strength. Pt. demo'd understanding & agreeable to POC. Therapy session was directly supervised and doc. reviewed and approved by Jayne Kenyon OTR/L,CHT. Rehabilitation Potential: Good - Anticipated Interventions A/AAROM/PROM, Strengthening, Edema Control, Massage, Modalities, Orthoses, Joint Protection/Energy Conservation, Ergonomic Education, Fine Motor Coord/Orlin, ADL Training, Education re assistive Equipment, Education re Diagnosis, Home Program - Visit Plan Frequency: 2x /Week Duration: 6 Weeks General Plan: [place] hand to [place] guidelines pp. 158-165 for lateral epicondylitis. On workman comp paper: ROM & strengthening. TEXT: Thank you for the opportunity to evaluate your patient. For Medicare and Medicare HMO plans, please review the plan of care and approve it. It will need to be FAXED BACK to us at [phone] for Medicare purposes. Please let me know if there are questions or concerns regarding this plan of care. Physician Signature: Date:
--- NOTE | 2022-04-06 16:57 | HP.OT.NRP ---
CATALINA FELTON was seen in my office for initial evaluation on 12/02/21. The following Plan of Care was established for this patient: Initial Frequency: 2x /Week Initial Duration: 6 Weeks Plan: ed. pt on work simulation and keeping good work mechanics- Anticipated Interventions: A/AAROM/PROM, Strengthening, Edema Control, Massage, Modalities, Orthoses, Joint Protection/Energy Conservation, Ergonomic Education, Fine Motor Coord/Orlin, ADL Training, Education re assistive Equipment, Education re Diagnosis, Home Program This patient was last seen in our office 02/02/22. Pertinent comments regarding their Occupational therapy will appear below: pt was seen for 9 OT visits- pt strength was increasing- pt cancelled last two apts and due to C9 limitations was unbale to schedule further apt- pt d/c from OT due to time lapse in services. At this point I will be discontinuing this patient from occupational therapy. I would be happy to see this patient again in the future if found appropriate by the physician. Thank you! Jayne Kenyon, OTR/L, CHT
== END 2022-02-02 19:00 | disposition home or self-care (01) ==
LOC: OT 09:30
PROVIDERS: PCP Internal Medicine; Referring Provider Physician Assistant; Visit Provider Physician Assistant
DX: M77.8 Other enthesopathies, not elsewhere classified (principal)
CPT/HCPCS: 97110; 97140; 97166

== ENCOUNTER 2022-04-28 07:27 | Day surgery (SDC) | payer OTHER, SELFPAY ==
[2022-04-28] VITALS (12 sets, daily range): BP systolic 116–141; BP diastolic 67–99; PULSE 67–105; RESP 14–19; TEMP 36.1–36.3; O2SAT 90–99; BMI 37.8
--- NOTE | 2022-04-28 07:32 | PCM.HP.STD ---
HPI - General HPI Narrative CATALINA FELTON, is a 47 M who presents for takedown and repair right partial distal biceps tear. No change to H and P. Wishes to proceed. Right elbow marked. Risks re-discussed. Here with his dad. Narcotic counselling performed. MR#: [id number] Acct: [id number] Name:CATALINA SZYMANSKI Rep #: [id number] : 1975 ? ? Provider: Dr. Jamie Vick MD Age/Sex:? 47/M ? ? [place] [facility] [place] Status: Signed Intake Intake Visit Reasons:?RIGHT elbow/Shoulder Is patient in pain?: Yes Allergies No Known Allergies Allergy (Verified 04/15/22 13:01) Medications multivitamin 1 tab PO DAILY 07/31/20 [History Confirmed 04/15/22] PFSH Medical History? 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 H/O tooth extraction History of bronchoscopy Family History? Grandfather DiabetesGrandmother?? Lung cancerMother Atrial fibrillationBrother Atrial fibrillation Social History? household members:? spouse and children housing:? house current occupational status:? employed Smoking Status:? Never smoker alcohol intake:? never what type of physical activity do you participate in:? none do you feel safe at home:? Yes HPI RIGHT elbow/Shoulder Details: Parts of this documentation were recorded by a scribe, this documentation accurately reflects the service provided and the decisions made by me, Dr. Jamie Vick MD 04/15/22 1301. CATALINA FELTON is a 47 year old M here today for low up right elbow pain with partial distal biceps tear Worker's Compensation claim.? He continues to have pain at the distal biceps insertion site and difficulty with lifting.? He is interested in proceeding with booking surgery. Ortho Exam General General: Yes no acute distress Neurologic: Yes alert and Yes oriented x3 Psychologic: Yes reasonable and appropriate Right Elbow Skin/Wound: Yes CDI, No eccymosis, No erythema and No Swelling ROM: Yes Flexion 0-140, Supination 0-90 and Pronation 0-80 Test: No TTP Medial Epicondyle, No TTP Lateral Epicondyle, No Pain w/ resist wrist ext, No Pain w/ resist wrist flex and Yes Ulnar Nerve Subluxation Sensation: Radial: I, Ulnar: I and Median: I Motor: Elbow Extension: 5, Elbow Flexion: 5, EPL: 5, FDP-2: 5 and 1st Dorsal Interosseous: 5 ELBOW: He has a normal hook test.? Normal rise and fall of the biceps area.? Good strength 4+ out of 5 in supination, 5/5 elbow flexion both causing pain.? There is pain to palpation at the distal biceps area and with hook test, and just lateral to this.? No obvious pain at the lateral epicondyle area he does describe his pain in the antecubital fossa just distal to the transverse volar elbow crease a little bit more to the radial side of this. Coding Level of Care Code Off vis,est,level 4 Diagnoses Traumatic partial tear of right biceps tendon? S46.211A Time Spent (min) 30 Assessment and Plan Assessment and Plan (1) Traumatic partial tear of right biceps tendon: ?Status:?Acute ?Plan: 47-year-old man with a partial distal biceps tear with continued pain despite extensive conservative management.? We had previously discussed both nonsurgical and surgical means of treating this.? He would like to go ahead with right distal biceps release and repair, possible allograft tissue.? Although the tendon does not appear retracted I will have available tibialis anterior allograft for possible tendon augmentation.? I did let him know that I would have to be taking down some normal fibers and repairing the tendon.? Typically I perform this through an anterior volar proximal forearm 1 incision technique.? May result in higher result rates of heterotopic ossification vs 2 incision.? Other risks include injury to the posterior interosseous nerve as well as the lateral antebrachial cutaneous nerve 1 percent and 7% respectively although two thirds of these will recover one third does not.? I think he has a good chance of diminishing his pain and possibly more function of the elbow as he does seem to have some side to side difference in terms of supination strength with careful motor strength testing today.? He would like to proveed with the surgery we discussed the pros and cons risks and benefits of nonoperative versus operative intervention and he signed a consent form for surgery as well as possible need for blood products which includes possible need for allograft tissue. Pros and cons risks and benefits were discussed with the patient including but not limited to infection, pain, stiffness, bleeding, damage to surrounding structures, neurovascular injury, recurrence or retear, failure or wear of hardware or fixation, instability, fracture, deep vein thrombosis and pulmonary embolism, anesthetic risks, patient dissatisfaction, need for further surgery and other risks.? Patient understood and wished to proceed with surgery, and signed the informed consent documentation. 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 Rheumatic fever Shortness of breath on exertion Smoker Wears glasses Home Medications zinc 100 mg tablet 50 mg PO DAILY 04/26/22 [History Last Taken Unknown] Allergy/AdvReac Type Severity Reaction Status Date / Time No Known Allergies Allergy Verified 04/26/22 08:04 Family History Grandfather Diabetes Grandmother Lung cancer Mother Atrial fibrillation Brother Atrial fibrillation Surgical History (Updated 04/26/22 @ 08:07 by Jenelle Cardoza) H/O tooth extraction History of bronchoscopy History of rotator cuff surgery Social History household members: spouse and children housing: house current occupational status: employed Smoking Status: Current every day smoker tobacco type: cigarettes alcohol intake: never what type of physical activity do you participate in: none do you feel safe at home: Yes
[2022-04-28] MEDS: Lactated Ringers 1,000 ML 15 ML IV (07:55)
--- NOTE | 2022-04-28 08:00 | RAD_ITS ---
EXAM: XR RIGHT ELBOW, 2 VIEWS CLINICAL INDICATION: rt elbow distal biceps release and repair TECHNIQUE: Frontal and lateral views of the right elbow. This report was created using [employer] report generation technology. COMPARISON: None. FINDINGS: See Impression. RAD/Elbow 2 Views IMPRESSION: Intraoperative images submitted for localization. Please see full surgical report. Electronically Signed: Naga Lepe MD at 1:21 EDT ,
[2022-04-28] MEDS: Cefazolin 2 GM in 0.9% Normal Saline 100 ML IV (08:54)
--- NOTE | 2022-04-28 10:43 | PCM.OPRPT ---
Problems Associated Problem List Diagnoses (1) Traumatic partial tear of right biceps tendon: Report of Operation Date of Procedure: 04/28/22 Pre-Operative Diagnosis: right distal biceps partial tear Post-Operative Diagnosis: same Surgery/Procedure Performed:: right distal biceps takedown and repair Description of Surgical Findings:: partial tear and tendinosis of distal biceps Surgeon: Jamie Vick Type of Anesthesia: Block,Regional and General Anesthesiologist: Sotero Hua Estimated Blood Loss (mL): 20 Description of Procedure: Patient was brought to the operating room theater.? They were placed supine on the operating room table.? 2 g of IV Ancef was administered prior to the start of the case.? General anesthesia was induced.? All bony prominences appropriately padded.? SCDs on the legs.? Arm table to the patient's operative side.? Bed turned 90 degrees.? Right upper extremity prepped and draped in the usual sterile fashion with chlorhexidine-based prep solution allowing over 3 minutes drying time prior to draping.? Preoperative timeout performed to confirm the site patient in the surgery. I began by exsanguinating the limb with a sterile Esmarch.? I elevated the limb and inflated the tourniquet to 250 mmHg.? I made a transverse incision on the volar aspect of the proximal forearm 2 fingerbreadths below the level of the elbow crease.?I dissected down through skin and subcutaneous tissue achieve meticulous hemostasis.? I identified the distal biceps at the radial tuberosity, protecting the neurovascular bunde. Ligated one crossing vessels at the biceps insertion site.? I whipstitch the tendon using the Arthrex straight needle for 5 throws locking it distally and cutting at the splice. Resected 5mm of distal biceps tendinosis tissue, and tubularized the tendon. Next I turned my attention distally.? Identified the radial tuberosity both by direct palpation visualization as well as through intraoperative x-rays.? I fully supinated the forearm.? I cleared away a small amount of soft tissue and decorticated slightly from the radial tuberosity.? Drilled the 3.2 mm spade tip drill bicrotically, then proximal end of tunnel with 8mm reamer. Irrigated bone dust. I passed the sutures in alternating fashion through the button and then deliver the button through to the far cortex.? I thoroughly irrigated any bone dust and debris.? Next I delivered the tendon into the bony tunnel.? Tendon was fully delivered into the tunnel buried and docked.? I then used a Butt needle to pass one of the suture limbs back through the tendon from the undersurface to the superior surface and then 5 alternating half hitches with this sutures cut short.? I then used a Arthrex bio interference screw 7 mm x 10 mm this achieved quite good purchase with squeak audible.? I again thoroughly irrigated the wound.? Repair was stable and solid. Arm kept in flexion.? Tourniquet let down meticulous hemostasis achieved.? Subcutaneous tissue closed with 3-0 Vicryl and 3-0 Monocryl.? Skin cleaned with wet and dry dressing followed by application of Steri-Strips Xeroform gauze abdominal pad dressing with Leonidas wrap, hinged elbow brace unlocked 80-130. Hand was warm and well-perfused after the case. Patient was woken up from general anesthetic transferred off the operating room table and taken to postanesthetic care unit in stable condition.? All sponge needle instrument counts were correct no complications.? PPlan to FU in 2 days.? Appropriate narcotic counseling given. Complications none Admit VTE Documentation VTE Present on Admission: No VTE Mechan Device Prophylaxis: SCD's VTE Pharm Prophylaxis ordered?: No Reason prophylaxis not ordered:: Treatment Not Indicated Procedures Musculoskeletal [id number]: Other Procedure See Report
--- NOTE | 2022-04-28 10:49 | DCINST_ITS ---
Discharge Instructions Diet Discharge Diet: No restrictions Activity May resume sexual activity in: No Restrictions Ice area for (Minutes): 10 Lifting Restrictions: no lifting, brace at all times Keep extremity elevated above heart level: Operative Extremity Dressing / Incision Call your doctor if your incision/area has: Continuous Slow Oozing, Sudden In creased Bleeding, Increased Pain/ Swelling, Increased Redness, Foul Smelling Discharge and Swelling at the incision site Change Dressing in: leave in place till F/U Cleanse incision/area with: Do not get Incision Wet Follow Up Care Please Follow Up With: Jamie Vick MD When: 2 days Test Results: Test results from this visit will be discussed in further detail at your follow- up appointment, if applicable. Discharge Plan Admission Attending Provider: Jamie Vick Primary Care Provider: Kimber Chicas Discharge Orders/Prescriptions Prescriptions: New oxycodone-acetaminophen [Percocet] 5-325 mg tablet 1 tab PO Q4H MDD 6 PRN (Reason: pain) 7 Days Qty: 30 0RF No Action zinc 100 mg Tablet 50 mg PO DAILY Referrals / Follow Up: Kimber Chicas MD [Primary Care Provider] - Disposition Disposition (needs filled in before D/C Order can be placed): Home, Self Care
--- NOTE | 2022-04-28 10:52 | PCM.DC ---
Discharge Instructions Diet Discharge Diet: No restrictions Activity May resume sexual activity in: No Restrictions Ice area for (Minutes): 10 Lifting Restrictions: no lifting, brace at all times Keep extremity elevated above heart level: Operative Extremity Dressing / Incision Call your doctor if your incision/area has: Continuous Slow Oozing, Sudden Increased Bleeding, Increased Pain/ Swelling, Increased Redness, Foul Smelling Discharge and Swelling at the incision site Change Dressing in: leave in place till F/U Cleanse incision/area with: Do not get Incision Wet Follow Up Care Please Follow Up With: Jamie Vick MD When: 2 days Test Results: Test results from this visit will be discussed in further detail at your follow-up appointment, if applicable. Discharge Plan Admission Attending Provider: Jamie Vick Primary Care Provider: Kimber Chicas Discharge Orders/Prescriptions Prescriptions: New oxycodone-acetaminophen [Percocet] 5-325 mg tablet 1 tab PO Q4H MDD 6 PRN (Reason: pain) 7 Days Qty: 30 0RF No Action zinc 100 mg Tablet 50 mg PO DAILY Referrals / Follow Up: Kimber Chicas MD [Primary Care Provider] - Disposition Disposition (needs filled in before D/C Order can be placed): Home, Self Care
[2022-04-28] MEDS: Ipratropium/Albuterol Sulfate 3 ML AMPUL.NEB INHALATION (12:05)
[2022-04-28] MEDS: oxyCODONE 5 MG Tablet PO (13:47)
[2022-04-28] MEDS: Acetaminophen 325 MG Tablet PO (13:47)
--- NOTE | 2022-04-28 18:30 | PN.ORTHO_ITS ---
Subjective Subjective Received a call from Anibal in the office at 6pm She states patient is having persistent SOB. I called the patient right away. He states pain worse on the right side, mid chest, with shortness of breath. He has had surgery before without this. I told him to present immediately to the [facility] ED room for assessment to rule out clots, pneumothorax etc. He agreed. Will call the ED to let them know. Objective Data Objective Data Vital Signs: Vital Signs Temp Pulse Resp BP Pulse Ox O2 Del Method O2 Flow Rate 97.4 F L 105 H 18 141/99 H 95 Room Air 2 04/28/22 13:57 04/28/22 13:57 04/28/22 13:57 04/28/22 13:57 04/28/22 13:57 04/28/22 13:57 04/28/22 12:15 Oxygen Flow Rate (L/min) 2 Oxygen Delivery Method Room Air Weight: 241 lb 10.026 oz Body Mass Index (BMI) 37.8 Intake & Output: Intake and Output for Last 24 Hours 04/26/22 04/27/22 04/28/22 23:59 23:59 23:59 Intake Total 700 / 700 Balance 700 / 700
== END 2022-04-28 14:22 | disposition home or self-care (01) ==
LOC: SDC 07:28 → AC 07:29
PROVIDERS: PCP Internal Medicine; Referring Provider Orthopaedic Surgery Sports Medicine; Visit Provider Orthopaedic Surgery Sports Medicine
PROC: (CPT 24341; principal; 2022-04-28 08:45)
DX: S46.211A Strain of muscle, fascia and tendon of other parts of biceps, right arm, initial encounter (principal); X58.XXXA Exposure to other specified factors, initial encounter; R06.02 Shortness of breath; F17.210 Nicotine dependence, cigarettes, uncomplicated; M77.8 Other enthesopathies, not elsewhere classified; R07.9 Chest pain, unspecified; R00.0 Tachycardia, unspecified; J45.909 Unspecified asthma, uncomplicated; Z98.890 Other specified postprocedural states
CPT/HCPCS: 24341; 01710; 71045; 71275; 73070; 76000; 80048; 84484; 85025; 87811; 93005; 94640; 96361; 96374; 99284; J7030; J7120; Q9967; A4216; J2405

== ENCOUNTER 2022-04-28 20:00 | Emergency (ER) | payer OTHER, SELFPAY ==
[2022-04-28 20:01] VITALS: BP 159/105; PULSE 128; RESP 16; TEMP 36.6; O2SAT 97; BMI 37.3
[2022-04-28 20:14] VITALS: BP 147/77; PULSE 119; RESP 12; O2SAT 94
[2022-04-28 20:16] VITALS: O2SAT 94
--- NOTE | 2022-04-28 20:48 | CT_ITS ---
EXAM: CT ANGIOGRAPHY CHEST WITHOUT AND WITH INTRAVENOUS CONTRAST CLINICAL INDICATION: chest pain TECHNIQUE: Helically acquired angiography images were obtained of the chest without and with intravenous contrast. This CT exam was performed using one or more of the following dose reduction techniques: automated exposure control, adjustment of the mA and/or kV according to patient size, and/or use of iterative reconstruction technique. This report was created using [employer] report generation technology. MIP reconstructed images were created and reviewed. CONTRAST: IV 100mL Isovue-370 COMPARISON: None. FINDINGS: PULMONARY ARTERIES: Unremarkable. Normal in caliber. No evidence of pulmonary embolism. AORTA: Unremarkable. Normal in caliber. No evidence of dissection. GREAT VESSELS OF AORTIC ARCH: Unremarkable. Normal in caliber. No evidence of dissection. LUNGS AND PLEURAL SPACES: Calcified granuloma in the left lower lobe. No mass. No consolidation or edema. No pleural effusion or thickening. No pneumothorax. HEART: Unremarkable. Heart size is normal. No pericardial effusion. No signs of right heart strain, ratio of right ventricle to left ventricle measures less than 1. MEDIASTINUM: Unremarkable. No mediastinal or hilar adenopathy. Esophagus is unremarkable. No hiatal hernia. THYROID: Unremarkable. No thyroid lesions. BONES/JOINTS: Unremarkable. No suspicious lytic or blastic abnormality. LIVER: Diffuse fatty infiltration of the liver. No focal lesion. CT/CTA Chest W/WO Contrast IMPRESSION: 1. No acute findings. 2. Old healed granulomatous disease. 3. Hepatic steatosis. Electronically Signed: Pati Corley MD at 21:58 EDT Reading Location ID and State: [id number] / Tel , Service support ,
--- NOTE | 2022-04-28 20:50 | EDS_ITS ---
HPI History of Present Illness Chief Complaint: Shortness of Breath Narrative Narrative: 47-year-old male with history of biceps tear presenting with shortness of breath and difficulty taking a deep breath today after having his right biceps repair by Dr. Vick this morning. He states he has some pain in the right side of his chest. Denies cough or fever. Patient states he has no history of cardiac disease that he knows of. No history of DVT/PE. He states he takes no daily ho me meds. Patient not anticoagulated. Patient does report that after his surgery today he drank 2 cups of coffee and smoked a couple of cigarettes. 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 Rheumatic fever Shortness of breath on exertion Smoker Wears glasses Home Medications zinc 100 mg tablet 50 mg PO DAILY 04/26/22 [History Last Taken Unknown] oxycodone-acetaminophen 5 mg-325 mg tablet (Percocet) 1 tab PO Q4H PRN pain 7 days #30 tabs 04/28/22 [Rx Last Taken Unknown] Allergy/AdvReac Type Severity Reaction Status Date / Time No Known Allergies Allergy Verified 04/28/22 20:15 Family History Grandfather Diabetes Grandmother Lung cancer Mother Atrial fibrillation Brother Atrial fibrillation Surgical History H/O tooth extraction History of bronchoscopy History of rotator cuff surgery Social History household members: spouse and children housing: house current occupational status: employed Smoking Status: Current every day smoker tobacco type: cigarettes alcohol intake: never what type of physical activity do you participate in: none do you feel safe at home: Yes ROS ROS ED Constitutional Constitutional ED: Denies chills or fever(s) Eyes Eyes: Denies change in vision or diplopia ENT ENT ED: Denies rhinorrhea or sore throat Cardiovascular Cardiovascular: Reports chest pain and racing heartbeat Respiratory/Chest Respiratory/Chest: Reports dyspnea; Denies cough Gastrointestinal Gastrointestinal: Denies abdominal pain or constipation Genitourinary Genitourinary ED: Denies dysuria or hematuria Musculoskeletal Musculoskeletal: Denies arthralgias or back pain Integumentary Denies abscess or Abrasions Neurologic Neurologic: Denies headache(s) or paresthesias Psychiatric Psychiatric: Denies anxiety or depression Endocrine Endocrinology: Denies cold intolerance or heat intolerance EXAM Physical Exam Const Vital Signs: 04/28/22 20:01 04/28/22 20:14 04/28/22 20:16 Temperature 97.9 F Temperature Source Temporal Pulse Rate 128 H 119 H Respiratory Rate 16 12 Respiratory Effort Normal Non-Labored Respiratory Depth Normal Respiratory Pattern Normal Blood Pressure 159/105 H 147/77 H Blood Pressure Mean 123 100 Pulse Ox 97 94 Oxygen Delivery Method Room Air Room Air Room Air 04/28/22 21:10 04/28/22 21:10 Temperature Temperature Source Pulse Rate 117 H Respiratory Rate 19 H Respiratory Effort Respiratory Depth Respiratory Pattern Blood Pressure 136/76 H Blood Pressure Mean 96 Pulse Ox 93 94 Oxygen Delivery Method Room Air Room Air MDM MDM MDM Narrative Medical decision making narrative: 47-year-old male presenting with shortness of breath. He also has some right- sided rib pain. This started after surgery earlier today. He notes that he did smoke a couple of cigarettes and have some caffeine after surgery. He states that his nerve block is starting to wear off as well which is causing him some pain. I spoke with Dr. Hatfield and he stated that he was just in the supine position with his arm extended and did not have any traumatic injury during surgery. He does have some tenderness in the right ribs. She denies any cardiac disease. The symptoms of been ongoing all day. His EKG is sinus tachycardia with a ventricular rate of 115 bpm without sign of ischemic change or dysrhythmia. Chest x-ray interpreted by myself does not show any acute cardiopulmonary process. There certainly does not appear to be a pneumothorax or any rib fractures that I can tell. CBC shows a leukocytosis of 12.7 which is not significantly elevated. Hemoglobin hematocrit are stable. Renal function electrolytes within normal limits. High-sensitivity troponin is 5 and since this has been ongoing for several hours I do not believe he needs a repeat troponin. CTA of the chest does not show any PE or dissection. No acute infiltrate. Given the patient's ultimately normal work-up I think he can be discharged. He still mildly tachycardic but feels well. He was given morphine for his pain. He has pain medicine at home. He is counseled to follow-up with Dr. Vick tomorrow. Impression: 1. Chest pain 2. Dyspnea 3. Tachycardia Lab Data Attestation: I reviewed the patient's lab results. Labs: Laboratory Results - last 24 hr 04/28/22 04/28/22 21:10 21:10 WBC 12.7 H RBC 4.94 Hgb 15.2 Hct 44.0 MCV 89.1 MCH 30.8 MCHC 34.5 RDW Std Deviation 39.7 RDW Coeff of Lenny 12.3 Plt Count 172 MPV 11.2 Immature Gran % (Auto) 0.600 Neut % (Auto) 87.5 H Lymph % (Auto) 6.3 L [place] % (Auto) 5.4 Eos % (Auto) 0.0 Baso % (Auto) 0.2 Absolute Neuts (auto) 11.1 H Absolute Lymphs (auto) 0.80 L Nucleated RBC % 0 Sodium 138 Potassium 4.1 Chloride 106 Carbon Dioxide 24.0 Anion Gap 8 BUN 13 Creatinine 1.13 Estim Creat Clear Calc 76.37 Est GFR (MDRD) Af Amer 90 Est GFR (MDRD) Non-Af 74 BUN/Creatinine Ratio 11.5 Glucose 315 H Calcium 9.4 Troponin I High Sens 5 Radiography Diagnostic Testing: Clinical Impression(s) from Imaging Studies Chest CTA 04/28/22 20:48 IMPRESSION: 1. No acute findings. 2. Old healed granulomatous disease. 3. Hepatic steatosis. Electronically Signed: Pati Corley MD at 21:58 EDT Reading Location ID and State: Demetri Tracy MD Tel , Service support , Chest X-Ray 04/28/22 21:21 IMPRESSION: No acute cardiopulmonary disease. Electronically Signed: Pati Corley MD at 21:38 EDT Reading Location ID and State: Demetri Tracy MD Tel , Service support , Discharge Plan Triage Chief Complaint: Shortness of Breath ED Provider: Joselito Patterson Dx/Rx/DC Orders Prescriptions: No Action zinc 100 mg Tablet 50 mg PO DAILY oxycodone-acetaminophen [Percocet] 5-325 mg tablet 1 tab PO Q4H MDD 6 PRN (Reason: pain) 7 Days Qty: 30 0RF Primary Care Provider: Kimber Chicas Referrals: Kimber Chicas MD [Primary Care Provider] -
[2022-04-28 21:10] VITALS: BP 136/76; PULSE 117; RESP 19; O2SAT 93; O2SAT 94
[2022-04-28] MEDS: 0.9% Normal Saline 1,000 ML 999 ML IV (21:11)
[2022-04-28 21:19] LABS: Absolute Neutrophil Count 11.1 X10^3/uL (2.0-7.7); Basophil# 0.02 X10^3/uL; Basophil% 0.2 % (0-1); Hemoglobin 15.2 g/dL (13.0-16.5); Lymphocyte % 6.3 % (19-41); Mean Corp Hgb Conc 34.5 g/dL (32-36); Mean Corpuscular Hgb 30.8 pg (27.0-32.0); Mean Corpuscular Volume 89.1 fL (80-94); Mean Platelet Vol. 11.2 fl (6.2-12.0); Monocyte# 0.68 X10^3/uL; Monocyte% 5.4 % (0-10); NRBC Flagged by Analyzer 0 % (0-5); Neutrophil # 11.12 X10^3/uL (2.7-7.7); Neutrophil % 87.5 % (47-70); Platelet Count 172 K/mm3 (150-450); RBC Distribution Width CV 12.3 % (11.6-14.6); RBC Distribution Width SD 39.7 fl (35.1-43.9); Red Blood Count 4.94 M/mm3 (4.6-6.2); White Blood Count 12.7 K/mm3 (4.4-11.0)
--- NOTE | 2022-04-28 21:21 | RAD_ITS ---
EXAM: XR CHEST, 1 VIEW CLINICAL INDICATION: chest pain TECHNIQUE: Frontal view of the chest. This report was created using [employer] report generation technology. COMPARISON: None. FINDINGS: LUNGS AND PLEURAL SPACES: Unremarkable. No consolidation or edema. No pneumothorax. No effusion. HEART: Unremarkable. Cardiac silhouette not enlarged. MEDIASTINUM: Central airways and mediastinal contour are unremarkable. BONES/JOINTS: Unremarkable. No displaced fracture. No destructive or sclerotic lesions. Visualized joint spaces are unremarkable. SOFT TISSUES: Unremarkable. RAD/Chest 1 View (Portable) IMPRESSION: No acute cardiopulmonary disease. Electronically Signed: Pati Corley MD at 21:38 EDT Reading Location ID and State: [id number] / Tel , Service support ,
[2022-04-28 21:57] LABS: Anion Gap 8 (5-15); BUN 13 mg/dL (7-18); BUN/Creat Ratio 11.5 RATIO (10-20); Calcium,Total 9.4 mg/dL (8.5-10.1); Chloride 106 mmol/L (98-107); Creatinine, Serum 1.13 mg/dL (0.70-1.30); EST Glomerular Filtration Rate 74 mL/min (>60); Est Glom Filt Rate - Afr Amer 90 mL/min (>60); Estimated Creatinine Clearance 76.37 ml/min; Glucose 315 mg/dL (74-106); Potassium 4.1 mmol/L (3.5-5.1); Sodium Level 138 mmol/L (136-145); Troponin-I HS (w/2H Reflex) 5 pg/mL (3.0-78.0)
--- NOTE | 2022-04-28 22:27 | PN.ORTHO_ITS ---
Subjective Subjective Have some pain with breathing on the right side of the chest Objective Data Objective Data Vital Signs: Vital Signs Temp Pulse Resp BP Pulse Ox O2 Del Method 97.9 F 117 H 19 H 136/76 H 94 Room Air 04/28/22 20:01 04/28/22 21:10 04/28/22 21:10 04/28/22 21:10 04/28/22 21:10 04/28/22 21:10 Oxygen Delivery Method Room Air Weight: 238 lb Body Mass Index (BMI) 37.3 Lab / Micro Data Result Diagrams: 04/28/22 21:10 04/28/22 21:10 Labs: Laboratory Results - last 24 hr 04/28/22 21:10: WBC 12.7 H, RBC 4.94, Hgb 15.2, Hct 44.0, MCV 89.1, MCH 30.8, MCHC 34.5, RDW Std Deviation 39.7, RDW Coeff of Lenny 12.3, Plt Count 172, MPV 11.2, Immature Gran % (Auto) 0.600, Neut % (Auto) 87.5 H, Lymph % (Auto) 6.3 L, [place] % (Auto) 5.4, Eos % (Auto) 0.0, Baso % (Auto) 0.2, Absolute Neuts (auto) 11.1 H, Absolute Lymphs (auto) 0.80 L, Nucleated RBC % 0 04/28/22 21:10: Sodium 138, Potassium 4.1, Chloride 106, Carbon Dioxide 24.0, Anion Gap 8, BUN 13, Creatinine 1.13, Estim Creat Clear Calc 76.37, Est GFR (MDRD) Af Amer 90, Est GFR (MDRD) Non-Af 74, BUN/Creatinine Ratio 11.5, Glucose 315 H, Calcium 9.4, Troponin I High Sens 5 Micro: Microbiology 04/28/22 21:38 Nasal Secretion SARS-CoV-2 Antigen (Rapid) - Final Radiography Diagnostic Testing: Radiology Impression Chest CTA 04/28/22 20:48 IMPRESSION: 1. No acute findings. 2. Old healed granulomatous disease. 3. Hepatic steatosis. Electronically Signed: Pati Corley MD at 21:58 EDT Reading Location ID and State: [id number] / Tel , Service support , Chest X-Ray 04/28/22 21:21 IMPRESSION: No acute cardiopulmonary disease. Electronically Signed: Pati Corley MD at 21:38 EDT Reading Location ID and State: [id number] / Tel , Service support , Physical Exam Const alert and oriented x3 Extremity Extremity Narrative: right UE hand warm, swollen moderate, strong radial pulse, well perfused, comparments soft Assessment & Plan Assessment/Plan (1) Traumatic partial tear of right biceps tendon: PLAN: I spoke with the patient in person, and asked him to FU with me tomorrow if he is cleared of any acute process. Also spoke with Dr. Patterson the ED physician.
[2022-04-28] MEDS: Morphine 4 MG/ML Syringe IV (22:30)
[2022-04-28 22:59] VITALS: BP 124/87; PULSE 106; RESP 16; O2SAT 94
[2022-04-28 23:15] LABS: Reflex Troponin-HS? (from REC) Y
== END 2022-04-28 23:06 | disposition home or self-care (01) ==
PROVIDERS: Emergency Provider Student in an Organized Health Care Education/Training Program; PCP Internal Medicine; Visit Provider Student in an Organized Health Care Education/Training Program
DX: R07.9 Chest pain, unspecified (principal); R06.02 Shortness of breath; R00.0 Tachycardia, unspecified; J45.909 Unspecified asthma, uncomplicated; F17.210 Nicotine dependence, cigarettes, uncomplicated; Z98.890 Other specified postprocedural states
CPT/HCPCS: 71045; 71275; 80048; 84484; 85025; 87811; 93005; J7030; Q9967; A4216

== ENCOUNTER 2022-07-08 11:30 | Outpatient (RCR) | payer OTHER, SELFPAY ==
--- NOTE | 2022-05-27 13:00 | HP.PTEVAL_ITS ---
Patient's Visit Information CATALINA FELTON is a 47 year old M referred to Physical Therapy by Dr. Jamie Vick MD with a diagnosis of STRAIN OF MUSCLE ,FASCIA AND TENDON OF OTHER PARTS OF BICEPS ,RIGHT. Date of Evaluation: 05/27/22 Physical Therapist: Cruzito Deleon, PT, Cert MDT, OCS - Visit Plan Frequency: 2-3x /Week Duration: 4-6 Plan: ELBOW BRACE 80 DEGREES. START AT 80 DEGREES PROGRESS 10-15 DEGREES A WEEK UNTIL FULL EXTENSION ,NO STRENGTHNEING 8 WEEKS. PT INTERVETIONS PROM ELBOW WITH LIMIATIONS 809 DEGREES TO START THEN PROGRESS 10-15 DEGREES EVERY WEEK ,PROGRESS TO STRENGTHENING BICEP IN 8 WEEKS ,C/P,MHP - Subjective This 47 y/o male presents to physical therapy with partial tear of distal bicep tear. Patient initially , injury to arm tossing case of milk slipped and fell right side. Patient initially had PT for shoulder and groin wasn't getting but then had injection of shoulder helped. Although continue to c/o elbow pain had MRI showed distal bicep tear. Tried PT didn't help Thus underwent repair of dis roddy bicep done by Dr Vick on Apr 28 2022 at [facility] d/c same day with sling and elbow brace set at 80 degrees , progress 10-15 degrees every week until full extension . No strengthening until 8 weeks post op. Patient has paresthesia dorsal thumb. Patient is getting better . MEDS: percocet. Patient condition affects QOL and function , and unable to return to work. RTD in 2weeks Patient has limitation's with all functional activities and self hygiene/ADL's. Elbow brace on all times except for showering. SOCAIL: . VOCATION: [employer]. - Pain Right Elbow Pain Intensity (Out of 10): 6 Pain Intensity Range: N/A - Objective POSTURE: WFL ,elbow brace intact. SKIN: well approximate. PROM: elbow extension 70 degrees ,flexion 90 degrees ,supination 70 degrees ,pronation 60 degrees ,wrist flexion/extension WFL. PROM: shoulder flexion 150 degrees ,abduction 150. NEURO: intact. MMT: NT - Balance/Special Test Scores Quick DASH Score: 84.0900 - Goals Goal 1:: Patient to be I with HEP for distal bicep repair Goal Time Frame: 8-12 Weeks Goal 2:: Patient to demonstrate 75 % improvement with improved function and less pain. Goal Time Frame: 8-12 Weeks Goal 3:: Patient to improve AROM elbow 5- 130 degrees to improve function and ADL'S Goal Time Frame: 8-12 Weeks Goal 4:: Patient to increase strength of bicep to 4/5 and wrist/forearm 5/5 to return to prior level of function Goal Time Frame: 8-12 Weeks Goal 5:: Patient to quick dash shoulder by 10 points to improve QOL and functional activity. Goal Time Frame: 6-8 Weeks - Rehabilitation Potential Physical Therapy Diagnosis: Patient underwent s/p distal bicep repair Nov 2 with current impairments with decrease ROM ,some pain decrease strength impairs function and ADLS and RTW thus benefit from skilled PT Rehabilitation Potential: Good - Anticipated Interventions Patient/Client Instruction: Educate patient on: Condition, Plan of Care For the Purpose of:: To decrease pain, To increase ROM, To improve muscle performance and motor function, To improve ability to perform ADL's, To increase tolerance to activity/condition/position, To improve ability of physical actions for home/community/work/leisure, To improve health of tissue, To decrease soft tissue restriction, To increase flexibility/ROM, To assume or resume ADL's, To reduce risk of recurrence, To improve tolerance to ADL's Therapeutic Exercise to Include: Strength training, Postural training, Flex ibilty training, Passive ROM, Active ROM Comment: START 80 DEGREES INCREAS 10-15 DEGREES EVERY WEEK TO UNTIL FULL EXTENSION. NO STRENGTHENING 8 WEEKS For the Purpose of:: To decrease pain, To increase ROM, To improve muscle performance and motor function, To improve ability to perform ADL's, To increase tolerance to activity/condition/position, To improve ability of physical actions for home/community/work/leisure, To improve health of tissue, To decrease soft tissue restriction, To increase flexibility/ROM, To improve tolerance to ADL's Thank you for the opportunity to evaluate your patient. For Medicare and Medicare HMO plans, please review the plan of care and approve it. It will need to be FAXED BACK to us at [phone] for Medicare purposes. For Medicare only, by signing this I certify the plan of care. Please let me know if there are questions or concerns regarding this plan of care. Physician S ignature: Date:
--- NOTE | 2022-09-03 14:26 | HP.PT.NRP ---
CATALINA FELTON was seen in my office for initial evaluation on 05/27/22. The following Plan of Care was established for this patient: Initial Frequency: 2-3x /Week Initial Duration: 4-6 Patient/Client Instruction: Educate patient on: Condition, Plan of Care For the Purpose of:: To decrease pain, To increase ROM, To improve muscle performance and motor function, To improve ability to perform ADL's, To increase tolerance to activity/condition/position, To improve ability of physical actions for home/community/work/leisure, To improve health of tissue, To decrease soft tissue restriction, To increase flexibility/ROM, To assume or resume ADL's, To reduce risk of recurrence, To improve tolerance to ADL's Therapeutic Exercise to Include: Strength training, Postural training, Flexibilty training, Passive ROM, Active ROM For the Purpose of:: To decrease pain, To increase ROM, To improve muscle performance and motor function, To improve ability to perform ADL's, To increase tolerance to activity/condition/position, To improve ability of physical actions for home/community/work/leisure, To improve health of tissue, To decrease soft tissue restriction, To increase flexibility/ROM, To improve tolerance to ADL's This patient was last seen in our office . Pertinent comments regarding their Physical therapy will appear below: Patient was seen for bicep tear with repair by [facility] PT focus on ROM with ROM restriction then progressed strengthening ,although patient cancelled and No showed several appointments thus d/c At this point I will be discontinuing this patient from physical therapy. I would be happy to see this patient again in the future if found appropriate by the physician. Thank you! Cruzito Deleon, PT, Cert MDT, OCS Balance/Gait/Functional tests - Balance/Special Test Scores Quick DASH Score: 84.0900
== END 2022-07-08 19:00 | disposition home or self-care (01) ==
LOC: PT 11:30
PROVIDERS: PCP Internal Medicine; Referring Provider Orthopaedic Surgery Sports Medicine; Visit Provider Orthopaedic Surgery Sports Medicine
DX: S46.211D Strain of muscle, fascia and tendon of other parts of biceps, right arm, subsequent encounter (principal)
CPT/HCPCS: 97110; 97162

== ENCOUNTER → 2022-11-17 | Outpatient (CLI) | payer OTHER, MEDICAID, SELFPAY ==
--- NOTE | 2022-11-17 10:00 | MRI_ITS ---
EXAM: MR RIGHT LOWER EXTREMITY WITHOUT INTRAVENOUS CONTRAST, HIP CLINICAL INDICATION: pain TECHNIQUE: Multiplanar and multisequence MR images of the right hip without intravenous contrast. COMPARISON: Abdominal pain. FINDINGS: TENDONS: FLEXORS: Unremarkable. Intact. EXTENSORS/HAMSTRING: Incidental finding of a low grade tear of the left conjoint hamstring tendon at its ischial attachment. ABDUCTORS: Unremarkable. Intact. ADDUCTORS: Unremarkable. Intact. ROTATORS: Unremarkable. Intact. MUSCLES: Unremarkable. Normal bulk and signal. FLUID: Unremarkable. No trochanteric bursitis. No significant hip joint effusion bilaterally. LABRUM: Unremarkable. No acetabular labral tearing. CARTILAGE: Unremarkable. No focal chondral defects at the hips or any other significant arthritic changes. BONES/JOINTS: No bone significant bone marrow signal alterations. OTHER SOFT TISSUES: Small fat-containing right and left inguinal hernias. No bowel herniation. BOWEL: Distal colonic diverticulosis. No evidence of diverticulitis. INTRAPERITONEAL SPACE: Unremarkable. No free air. No free fluid in the pelvis. BLADDER: Incompletely distended bladder is grossly unremarkable. MRI/Lower Ext Joint Only (Routine) IMPRESSION: No findings to explain abdominal pain. Incidental finding of a low grade tear of the left conjoint hamstring tendon at its ischial attachment. No internal derangement of the hip joints. Electronically Signed: Naga Lepe MD at 22:08 EDT ,
--- NOTE | 2024-01-30 14:06 | MRI_ITS ---
STUDY: MRI LEFT SHOULDER REASON FOR EXAM: Male, 49 years old. Pain -- TECHNIQUE: Standardized fat and water weighted pulse sequences were obtained in all 3 orthogonal planes. COMPARISON: X-ray April 08, 2023 FINDINGS: There is tendinosis with partial intrasubstance tear of the supraspinatus, series 4 images 10 through 13. Normal infraspinatus tendon. Normal subscapularis tendon. Normal teres minor tendon. Normal supraspinatus muscle. Normal infraspinatus muscle. Normal subscapularis muscle. Normal teres minor muscle. Normal glenohumeral articulation. Normal humeral head. There is susceptibility artifact associated postoperative change of the proximal shaft of the humerus. There is tear of the superior labrum, series 6 images 14 and 15. There is biceps tenodesis. Normal capsulo- ligamentous complex. Normal rotator interval. There is mild osteoarthritis of the acromioclavicular articulation. There is a Type II morphology (curved) acromion, with a neutral orientation. There is minimal fluid distention of the subacromial bursa, consistent with mild subacromial-subdeltoid bursitis. Normal visualized coracohumeral and coracoacromial ligaments. Normal quadrilateral space. Normal axillary space. Normal deltoid muscle. Normal trapezius muscle. MRI/Upper Ext Joint Only(Routine) IMPRESSION: Postoperative change. Tendinosis and partial intrasubstance tear of the supraspinatus. No full-thickness rotator cuff tear. Tear of the superior labrum. Electronically Signed: Juliocesar Cabrera MD at 18:52 EDT ,
== END | disposition home or self-care (01) ==
LOC: MRI 09:28
PROVIDERS: PCP Internal Medicine; Referring Provider Orthopaedic Surgery Sports Medicine; Visit Provider Orthopaedic Surgery Sports Medicine
DX: S76.011A Strain of muscle, fascia and tendon of right hip, initial encounter (principal)
CPT/HCPCS: 73721

== ENCOUNTER 2024-01-18 08:45 | Day surgery (SDC) | payer OTHER, SELFPAY ==
[2024-01-18] VITALS (9 sets, daily range): BP systolic 122–153; BP diastolic 83–114; PULSE 82–111; RESP 14–18; TEMP 35.6–36.7; O2SAT 78–98; BMI 36.2
--- NOTE | 2024-01-18 08:48 | EKG12_ITS ---
Test Reason : PREOP Blood Pressure : / mmHG Vent. Rate : 079 BPM Atrial Rate : 079 BPM P-R Int : 176 ms QRS Dur : 090 ms QT Int : 356 ms P-R-T Axes : 025 003 011 degrees QTc Int : 408 ms Normal sinus rhythm Normal ECG When compared with ECG of 28-APR-2022 20:53, No significant change was found Confirmed by KELLIE ASENCIO, CAROLYN ([id number]), index editor ANDERSON JENKINS ([id number]) on 01/19/2024 2:34:30 PM Referred By: Jamie Vick Confirmed By:CAROLYN HOPKINS MD
--- NOTE | 2024-01-18 08:51 | PRE.ANES_ITS ---
ASA Classification* ASA Classification ASA Classification: 2 Assessment & Plan Anesthesia* Anesthesia Assessment Anesthesia Assessment: Discussed sedation and/or anesthesia options, risks, benefits, and alternatives with patient/parents/legal guardian/POA. Questions invited. The patient/parents/legal guardian/POA seems to understand and agrees to proceed with anesthesia plan. Reviewed the physical assessment, medical history, allergy history and patient home medications list prior to surgery/procedure/anesthetic and documented any changes. Performed airway and anesthesia risk assessments. Anesthesia Type Anesthesia Type: General (consented for IS block for post op pain) Anesthesia Focused Assessment* Airway Assessment Mouth opens: >3 cm Mallampati Score: II Focused Labs Anesthesia Preop lab: CBC WBC 12.7 K/mm3 (4.4-11.0) H 04/28/22 21:10 RBC 4.94 M/mm3 (4.6-6.2) 04/28/22 21:10 Hgb 15.2 g/dL (13.0-16.5) 04/28/22 21:10 Hct 44.0 % (40-54) 04/28/22 21:10 Plt Count 172 K/mm3 (150-450) 04/28/22 21:10 CHEMISTRY Potassium 4.1 mmol/L (3.5-5.1) 04/28/22 21:10 Sodium 138 mmol/L (136-145) 04/28/22 21:10 BUN 13 mg/dL (7-18) 04/28/22 21:10 Creatinine 1.13 mg/dL (0.70-1.30) 04/28/22 21:10 Glucose [facility] 108 mg/dL (70-110) 10/13/21 10:24 Glucose 315 mg/dL (74-106) H 04/28/22 21:10 TSH 2.09 uIU/mL (0.358-3.74) 10/13/21 10:41 COAG Pre-Assessment Diagnosis/Proposed Procedure Planned Operative Procedure(s): RIGHT SHOULDER ARTHROSCOPY SUBCROMIAL DECOMPRESSION RTC REPAIR Anesthesia History Anesthesia History - wellness program coordinator: Anesthesia History - wellness program coordinator Hx Hospitalization No 01/17/24 08:40 Any Problems With Anesthesia No 01/17/24 08:40 Cholinesterase deficiency No 01/17/24 08:40 You/Your Family Experience No 01/17/24 08:40 fever (hyperthermia) with Relationship Recent Exposure to Contagious No 04/18/23 08:18 Disease Does patient have nerve No 01/17/24 08:40 stimulator Patient instructed to have device shut off --Does patient have Pacemaker or ICD? When Was Last Pacemaker Check QUESTION #4 FULL TEXT: You/Your Family Experience fever (hyperthermia) with Anesthesia Last Oral Intake Last Oral intake: Last Oral Intake NPO since Meds taken in AM with sips of water? Meds patient instructed to take am of surgery PONV PONV - wellness program coordinator: PONV - wellness program coordinator Female No 01/17/24 08:40 HX of Motion Sickness No 01/17/24 08:40 HX of N/V After Surgery No 01/17/24 08:40 Non-Smoker No 01/17/24 08:40 Duration of Surgery greater Yes 01/17/24 08:40 than 60 minutes Number of Risk Factors 1 01/17/24 08:40 PONV Score Low Risk 01/17/24 08:40 Height & Weight Height & Weight: Anesthesia: Height & Weight Height 5 ft 7 in 04/18/23 08:18 Respiratory Assessment Respiratory Assessment - wellness program coordinator: Respiratory Tract Infection Hx - wellness program coordinator Hx Respiratory Tract Infection No 01/17/24 08:40 STOP Sleep Apnea STOP Sleep Apnea - wellness program coordinator: STOP Sleep Apnea - wellness program coordinator Hx Hypertension No: PT STATES HIGH BP AT 01/17/24 08:40 TIMES/NO MEDS Hx Sleep Apnea No 01/17/24 08:40 CPAP BIPAP Do you snore loudly (louder Yes 01/17/24 08:40 than talking or can be heard Do you often feel tired/ No 01/17/24 08:40 fatigued/ sleepy during daytime? Has anyone observed you stop No 01/17/24 08:40 breathing during sleep? STOP Results Negative 01/17/24 08:40 QUESTION #5 FULL TEXT : Do you snore loudly (louder than talking or can be heard through closed doors)? Tobacco Use History Tobacco Use History - wellness program coordinator: Tobacco Use History - wellness program coordinator Tobacco Use Smoking Status Current every day smoker 01/17/24 08:40 Hx Tobacco Use Yes: VAPES 01/17/24 08:40 Years Smoking Packs Smoked per Day Smoking Cessation Date was within the last 15 years Hx Smoking Cessation Date Hx Smoking Cessation Counseling Hematologic Medial History Hematologic Hx - wellness program coordinator: Hematologic Medical Hx - bilingual administrative assistant Hx of Blood Transfusion No 01/17/24 08:40 Hx of Transfusion in last 3 No 01/17/24 08:40 Months Date of Last Transfusion (if within last 3 months) Ever experience any problems No 01/17/24 08:40 with transfusion(s)? Specify any problems Hx of Preganancy in last 3 N/A 01/17/24 08:40 Months Nurse Filling Out Transfusion DSCHRIBER 01/17/24 08:40 & Questions: Date: 01/17/24 01/17/24 08:40 Time: 08:42 01/17/24 08:40 Patient unable to answer at this time (ie. confused, unrespo /Reproduction History /Reproductive History - wellness program coordinator: /Reproductive Hx- wellness program coordinator Hx Now No 01/17/24 08:40 Gestational Age (in weeks): EDC: Hx Hx Para Hx Section SAB No 01/17/24 08:40 Active Medications Active Medications: Current Medications Generic Name Dose Route Start Last Admin Trade Name Freq PRN Reason Stop Dose Admin Cefazolin Sodium 2 gm/ Sodium 110 mls @ 150 mls/hr 01/18/24 10:40 Chloride IV 01/18/24 11:23 PREOP ONE Lactated Ringer's 1,000 mls @ 15 mls/hr 01/18/24 08:45 IV .Q48H PETER PFSH Medical History Diabetes Back pain Injury of head and neck Heartburn Histoplasmosis Leg cramps History of rheumatic fever Right rotator cuff tear Strain of right groin Strain of right hip adductor muscle Wears glasses Shortness of breath on exertion Smoker Rheumatic fever 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 Home Medications ?Medication ?Instructions ?Recorded ?Last Taken ?Type acetaminophen 325 mg capsule 325 mg PO Q6H PRN PRN pain 04/07/23 Unknown History (Tylenol) metformin 500 mg tablet 500 mg PO DAILY 04/25/23 Unknown History Allergy/AdvReac Type Severity Reaction Status Date / Time No Known Allergies Allergy Verified 01/17/24 08:38 Family History Grandfather Diabetes Grandmother Lung cancer Mother Atrial fibrillation Brother Atrial fibrillation Surgical History History of surgery on arm History of rotator cuff surgery History of bronchoscopy H/O tooth extraction Social History household members: spouse and children housing: house current occupational status: employed Smoking Status: Current every day smoker tobacco type: cigarettes and e- cigarettes alcohol intake: never substance use type: does not use what type of physical activity do you participate in: none do you feel safe at home: Yes additional social history: Occasional aspirin use. Does not use ibuprofen. Review of Systems (Anesthesia) ROS Narrative System reviewed and no additional complaints, except as documented.
[2024-01-18] MEDS: Lactated Ringers 1,000 ML 15 ML IV (09:18)
[2024-01-18 09:22] LABS: Hematocrit 44.1 % (40-54); Hemoglobin 15.3 g/dL (13.0-16.5); Mean Corp Hgb Conc 34.7 g/dL (32-36); Mean Corpuscular Hgb 30.6 pg (27.0-32.0); Mean Corpuscular Volume 88.2 fL (80-94); Mean Platelet Vol. 11.5 fl (6.2-12.0); Platelet Count 166 K/mm3 (150-450); RBC Distribution Width CV 12.1 % (11.6-14.6); RBC Distribution Width SD 38.9 fl (35.1-43.9); White Blood Count 5.7 K/mm3 (4.4-11.0)
[2024-01-18 09:50] LABS: Bedside Glucose 136 mg/dL (74-106)
[2024-01-18 10:08] LABS: Hemoglobin A1c 6.1 % (3.8-5.6)
--- NOTE | 2024-01-18 10:29 | PCM.HP.STD ---
HPI - General HPI Narrative CATALINA FELTON, is a 48 M who presents for right shoulder arthroscopy subacromial decompression and rotator cuff repair. No changes to history and physical exam. Risks alternatives benefits discussed as well as narcotic counseling and postoperative instructions. Patient understands right shoulder marked no further questions or concerns. MR#: [id number] Acct: [id number] Name: CATALINA FELTON Rep #: [id number] : 1975 Provider: Dr. Jamie Vick MD Age/Sex: 48/M Location: [facility] [place] [facility] [place] Status: Signed Intake Vital Signs 04/18/2308:18 Height 5 ft 7 in Intake Visit Reasons: BILATERAL SHOULDERS Chief Complaint: right shoulder Accompanied by: Self Is patient in pain?: No Allergies No Known Allergies Allergy (Verified 01/02/24 15:03) Medications ?Medication ?Instructions ?Recorded ?Confirmed ?Type acetaminophen 325 mg capsule 325 mg PO ONCE PRN 04/07/23 01/02/24 History (Tylenol) metformin 500 mg tablet 500 mg PO DAILY 04/25/23 01/02/24 History PFSH Medical History Right rotator cuff tear Strain of right groin Strain of right hip adductor muscle Wears glasses Alcohol use History of steroid therapy Heartburn Shortness of breath on exertion Smoker Asthma Rheumatic fever 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 Does not use ibuprofen. HPI BILATERAL SHOULDERS Details: This documentation accurately reflects the service provided and the decisions made by me, Dr. Jamie Vick MD 01/02/24 1308. Part of today?s visit was documented by [ ], acting as scribe. CATALINA FELTON is a 48 year old M here today for FU WCB injury, bilateral shoulder pain. Patient states right shoulder was approved for surgery, and left to proceed with MRI. Patient still having difficulties with lifting and pain in the right shoulder. Patient is interested to proceed with shoulder surgery. He had a hearing. No prior operations on the right side. Ortho Exam General General: Yes no acute distress Neurologic: Yes alert and Yes oriented x3 Psychologic: Yes reasonable and appropriate Right Shoulder Skin/Wound: Yes CDI, No ecchymosis, No erythema and No swelling Testing: Positive Hawkin's, Neer's and empty can; Negative Speed's, TTP Biceps, TTP AC Joint or Drop Arm SHOULDER: normal motor and sens to ax nerve, and MRU and AIN/PIN active and passive FE 165, ER 40 strength in FE 4+, ER 5/5. Coding Level of Care Code Off vis,est,level 4 Diagnoses Right rotator cuff tear M75.101 Assessment and Plan Assessment and Plan (1) Right rotator cuff tear: Status: Acute Plan: 48 year old M here today for FU right shoulder pain... MRI shows rotator cuff tear and the patient Is interested to proceed with surgical management of this. This would be in the form of right shoulder arthroscopy subacromial decompression and rotator cuff repair. Discussed the diagnosis prognosis different treatment options associated with this including conservative management continue physical therapy and injections. Surgery has risks as well 2 to 3 weeks in a sling postoperatively and up to 3 months or longer before going back to heavy lifting. The patient wants to go ahead with right shoulder arthroscopy, subacromial decompression, rotator cuff repair. We will submit the forms for Worker's Comp for this and he understood no further questions. Patient does have diabetes (hg a1c under 7) and is actively trying to quit smoking and vaping so these things independently increases risk for infection and other surgical complications. Pros and cons risks and benefits were discussed with the patient including but not limited to infection, pain, stiffness, bleeding, damage to surrounding structures, neurovascular injury, recurrence or retear, failure or wear of hardware or fixation, instability, fracture, deep vein thrombosis and pulmonary embolism, anesthetic risks, , patient dissatisfaction, need for further surgery and other risks. Patient understood and wished to proceed with surgery, and signed the informed consent documentation. 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 Home Medications ?Medication ?Instructions ?Recorded ?Last Taken ?Type acetaminophen 325 mg capsule 325 mg PO Q6H PRN PRN pain 04/07/23 01/17/24 History (Tylenol) metformin 500 mg tablet 500 mg PO DAILY 04/25/23 01/17/24 History Allergy/AdvReac Type Severity Reaction Status Date / Time No Known Allergies Allergy Verified 01/18/24 09:14 Family History Grandfather Diabetes Grandmother Lung cancer Mother Atrial fibrillation Brother Atrial fibrillation Surgical History History of surgery on arm History of rotator cuff surgery History of bronchoscopy H/O tooth extraction Social History household members: spouse and children housing: house current occupational status: employed Smoking Status: Current every day smoker tobacco type: cigarettes and e-cigarettes alcohol intake: never substance use type: does not use what type of physical activity do you participate in: none do you feel safe at home: Yes additional social history: Occasional aspirin use. Does not use ibuprofen. Vital Signs Vital Signs Vital Signs: 01/18/24 09:15 01/18/24 09:15 Temperature 98.1 F Temperature Source Temporal Pulse Rate 82 Respiratory Rate 17 Respiratory Pattern Normal Blood Pressure 125/83 H Blood Pressure Mean 97 Blood Pressure Source Monitor Blood Pressure Position Semi-Fowlers Blood Pressure Location Left Arm Pulse Ox 98 Oxygen Delivery Method Room Air Weight Weight: 231 lb 7.766 oz Body Mass Index (BMI) 36.2 Results Lab / Micro Data 01/18/24 09:11 Labs: Laboratory Results - last 24 hr 01/18/24 09:10: POC Glucose 136 H 01/18/24 09:11: WBC 5.7, RBC 5.00, Hgb 15.3, Hct 44.1, MCV 88.2, MCH 30.6, MCHC 34.7, RDW Std Deviation 38.9, RDW Coeff of Lenny 12.1, Plt Count 166, MPV 11.5, Hemoglobin A1c 6.1 H
[2024-01-18] MEDS: Cefazolin 2 GM in 0.9% Normal Saline (100mL Bag) 100 ML IV (10:58)
[2024-01-18] MEDS: Epinephrine (1 mg/ml) 1 MG/ML VIAL (11:30)
--- NOTE | 2024-01-18 12:33 | EX.PCM.DISCH ---
Discharge Instructions Diet Discharge Diet: No restrictions Activity Discharge Activity: May Shower Ice area for (Minutes): 10 Lifting Restrictions: no lifting over one pound Additional Activity Instructions:: ok for pendulums, hand wrist elbow rom 4x/day Dressing / Incision Call your doctor if your incision/area has: Continuous Slow Oozing, Sudden Increased Bleeding, Increased Pain/ Swelling, Increased Redness, Foul Smelling Discharge and Swelling at the incision site Call your doctor if you observe: Fever of 101 or Higher, Numbness or Tingling and Change in Color Change Dressing in: leave in place till F/U Cleanse incision/area with: Do not get Incision Wet Additional Dressing/Incision Instructions:: 2 days Follow Up Care Please Follow Up With: Jamie Vick MD Test Results: Test results from this visit will be discussed in further detail at your follow-up appointment, if applicable. Discharge Plan Admission Attending Provider: Jamie Vick Primary Care Provider: Kimber Chicas Instructions Print Language: Kinyarwanda Discharge Orders/Prescriptions Prescriptions: New oxycodone-acetaminophen [Percocet] 5-325 mg tablet 1 tab PO Q4H MDD 6 PRN (Reason: pain) 5 Days Qty: 30 0RF No Action metformin 500 mg tablet 500 mg PO DAILY acetaminophen [Tylenol] 325 mg capsule 325 mg PO Q6H PRN PRN (Reason: pain) Referrals / Follow Up: Kimber Chicas MD [Primary Care Provider] - Jamie Vick MD [Med Staff - Active Staff] - Disposition Disposition (needs filled in before D/C Order can be placed): Home, Self Care
--- NOTE | 2024-01-18 12:35 | OP.PCM_ITS ---
Problems Associated Problem List Diagnoses (1) Right rotator cuff tear: Report of Operation Date of Procedure: 01/18/24 Pre-Operative Diagnosis: R rotator cuff tear Post-Operative Diagnosis: same Surgery/Procedure Performed:: R shoulder arthroscopy, SAD, rotator cuff repair Surgeon: Jmaie Vick Type of Anesthesia: Block,Regional and General Anesthesiologist: Angel Gomez Estimated Blood Loss (mL): 25 Description of Procedure: Patient brought to the operating room theater. Placed supine on the table. General anesthesia induced. 2 g IV Ancef administered prior to the start of procedure. All bony prominences padded. SCDs on the legs. Patient transferred right side up lateral decubitus beanbag positioner axillary roll used. Upper extremity prepped and draped in the usual sterile fashion with chlorhexidine- based prep solution allowing over 3 minutes drying time prior to draping. 10 pounds of inline traction with the arm and 35 degrees of abduction was used. Preoperative timeout performed to confirm the site patient the surgery. Began by inserting the arthroscope into the intra-articular portion of the shoulder through a standard arthroscopy portal. Did a full diagnostic arthroscopy. Cartilage on the glenoid and humeral head appeared normal. Made anterior portal through rotator interval. Subscapularis appeared normal normal attachment slight fraying. No loose bodies. Some minor fraying of the labrum. There is fraying of the superior labrum as well. Biceps attachment was stable. Did a minor debridement there. Long head of the biceps appeared normal. Undersurface the rotator cuff was examined at the anterior leading edge was a high-grade partial-thickness tear. I marked this with a spinal needle. I then entered the subacromial space. Made 2 accessory lateral portals. There is a moderate amount of inflammatory bursitis. I debrided this removed the bursa. Rest of the cuff was normal. The acromion was downsloping the subacromial space was quite small and tight. I debrided and did a subacromial decompression for about 4 mm at the anterior leading lateral leading edge. Identified the area of the high-grade partial tearing however 80% 5 mm x 5 mm SS tendon. Identified the spinal needle I remove this. I debrided the edge of the tear completed the tear to a small full-thickness tear. I used the Arthrex power pick instrument trephinate multiple small holes of the greater tuberosity to stimulate for healing. I then used fiber tape suture inverted horizontal mattress. I then inserted the 2 free ends into a Arthrex 4.75 mm bio composite swivel lock anchor. This held down the repair and nicely probed the repair this was felt to be stable and solid. Arthroscopy pictures taken and saved throughout the case. Wound thoroughly irrigated. Subcutaneous tissue closed with 3-0 Monocryl. Skin cleaned with wet and dry dressing followed by application of Steri-Strips Adaptic 4 x 4 gauze ABD dressing cloth tape and a sling for the upper extremity. Patient woken up from the general anesthetic transferred off the operating table and taken postanesthetic care unit in stable condition. All sponge needle instrument counts were correct no complications. CPT codes 29297, 18269 Complications none Admit VTE Documentation VTE Present on Admission: No VTE Mechan Device Prophylaxis: SCD's VTE Pharm Prophylaxis ordered?: No Reason prophylaxis not ordered:: Treatment Not Indicated Procedures Musculoskeletal [id number]: Other Procedure See Report
--- NOTE | 2024-01-18 12:44 | PCM.POST.ANE ---
Anesthesia: Postop Eval I Current Vital Signs Temperature: 96.8 F Pulse Rate: 110 Blood Pressure: 136/90 Respiratory Rate: 14 Pulse Ox: 93 Oxygen Delivery Method: Nasal Cannula Oxygen Flow Rate (L/min): 4 Assessment Airway patent: Yes Spontaneous unlabored respirations: Yes Mental status: Awake and Calm nausea: No Vomiting: No Anesthesia Complication: No Fluid Hydration Crystalloid volume administer (ml): 1,200 Total IV fluid infused: 1,200 Progress Note Anesthesia document: Postop Eval 1 completed: Yes
--- NOTE | 2024-01-18 12:55 | SUR.PHASEI ---
patient arrives to pacu with spo2 73%. donned NC at 4L. attempted to place NPA in right nare, patient moved and nose bled. bleeding stopped. saturations recovered. see charting. vss.
[2024-01-18] MEDS: HYDROcodone Bitartrate/Apap 5/325 Tablet PO (13:40)
--- NOTE | 2024-01-18 14:28 | POSTOPAN2_ITS ---
Anesthesia Postop Eval I Sum Postop Eval Completion status Anesthesia document: Postop Eval 1 completed: Yes Anesthesia Postop Eval I Summary Anesthesia Postop Eval I Summary: Anesthesia Postop Eval I: Assessment Summary Airway patent Yes 01/18/24 12:46 [email or web address] Spontaneous unlabored Yes 01/18/24 12:46 CLINICAL [email or web address] respirations Mental status Awake,Calm 01/18/24 12:46 [email or web address] nausea No 01/18/24 12:46 CLINICAL [email or web address] Vomiting No 01/18/24 12:46 CLINICAL [email or web address] Anesthesia Postop Eval I: Fluid Summary Crystalloid volume administer 1,200 01/18/24 12:46 [email or web address] (ml) Colloids volume administered ( ml) Blood Product volume administered (ml) Total IV fluid infused 1,200 01/18/24 12:46 [email or web address] Anesthesia Postop Eval I: Summary Notes Anesthesia Complication No 01/18/24 12:46 [email or web address] Anesthesia Complication Comment: Post-operative progress note Anesthesia: Postop Eval II Evaluation Mental status: Awake and Calm Pain Level: 2 nausea: No Vomiting: No Complications Anesthesia Complication: Yes Anesthesia Complication Comment:: Patient had a swollen lip likely due to being pinched between the endotracheal tube and his teeth. Patient was reassured that this would resolve on its own.
--- NOTE | 2024-01-18 14:28 | PCM.POSTANE2 ---
Anesthesia Postop Eval I Sum Postop Eval Completion status Anesthesia document: Postop Eval 1 completed: Yes Anesthesia Postop Eval I Summary Anesthesia Postop Eval I Summary: Anesthesia Postop Eval I: Assessment Summary Airway patent Yes 01/18/24 12:46 [email or web address] Spontaneous unlabored Yes 01/18/24 12:46 [email or web address] respirations Mental status Awake,Calm 01/18/24 12:46 [email or web address] nausea No 01/18/24 12:46 [email or web address] Vomiting No 01/18/24 12:46 [email or web address] Anesthesia Postop Eval I: Fluid Summary Crystalloid volume administer 1,200 01/18/24 12:46 [email or web address] (ml) Colloids volume administered ( ml) Blood Product volume administered (ml) Total IV fluid infused 1,200 01/18/24 12:46 [email or web address] Anesthesia Postop Eval I: Summary Notes Anesthesia Complication No 01/18/24 12:46 [email or web address] Anesthesia Complication Comment: Post-operative progress note Anesthesia: Postop Eval II Evaluation Mental status: Awake and Calm Pain Level: 2 nausea: No Vomiting: No Complications Anesthesia Complication: Yes Anesthesia Complication Comment:: Patient had a swollen lip likely due to being pinched between the endotracheal tube and his teeth. Patient was reassured that this would resolve on its own.
== END 2024-01-18 14:21 | disposition home or self-care (01) ==
LOC: SDC 08:45 → AC 08:47
PROVIDERS: Anesthesiology; PCP Internal Medicine; Referring Provider Orthopaedic Surgery Sports Medicine; Visit Provider Orthopaedic Surgery Sports Medicine
PROC: (CPT 29805; principal; 2024-01-18 10:20)
DX: M75.101 Unspecified rotator cuff tear or rupture of right shoulder, not specified as traumatic (principal); E11.9 Type 2 diabetes mellitus without complications; J45.909 Unspecified asthma, uncomplicated; F17.210 Nicotine dependence, cigarettes, uncomplicated; F17.290 Nicotine dependence, other tobacco product, uncomplicated; Z79.84 Long term (current) use of oral hypoglycemic drugs
CPT/HCPCS: 29826; 29827; 64415; 01630; 82962; 83036; 85027; 93005; J7120; J2405

== ENCOUNTER 2024-01-30 13:36 | Outpatient (CLI) | payer OTHER, SELFPAY | END 2024-01-30 23:59 | disposition home or self-care (01) | LOC: MRI 13:39 | PROVIDERS: PCP Internal Medicine; Referring Provider Orthopaedic Surgery Sports Medicine; Visit Provider Orthopaedic Surgery Sports Medicine | DX: S46.912A Strain of unspecified muscle, fascia and tendon at shoulder and upper arm level, left arm, initial encounter (principal) | CPT/HCPCS: 73221 ==